=== PATIENT | male | born 1965 | race Caucasian/White ===

== ENCOUNTER 2018-03-21 11:25 | Inpatient (IN) | payer MEDICAID ==
[2018-03-22 19:51] VITALS: BMI 34.8
--- NOTE | 2018-03-22 20:09 | CP.PCM.HP ---
History of Present Illness - History of Present Illness History of Present Illness: 53 yo male with history of HTN and Gout claimed he was talking with his brother on the phone when he suddenly lost balance and was unable to get up. Denied LOC but claimed he hit his head on the wall on the way done. Patient was advised by his brother to get immediate attention but patient refused. He was not seen until 3 days later when his arrived from [place]. He was brought to [facility] on 03/16/2018 and was found to have left facial droop and slurred speech. CT scan showed large focal bleed at the right basal ganglia with sorrounding edema associated with mass effect. When patient became neurologically and hemodynamically stable he was transferred to Acute Rehab for PT/OT. Present on Admission - Present on Admission Any Indicators Present on Admission: No History of DVT/PE: No History of Uncontrolled Diabetes: No Urinary Catheter: No Decubitus Ulcer Present: No Review of Systems - Review of Systems All systems: reviewed and no additional remarkable complaints except (aside from those mentioned above, 12 point system review were negative by me) Past Patient History - Tetanus Immunizations Tetanus Immunization: Unknown - Past Medical History & Family History Past Medical History?: Yes - Past Social History Smoking Status: Never Smoked Alcohol: None Drugs: Denies Home Situation {Lives}: With Family - CARDIAC Hx Hypercholesterolemia: Yes Hx Hypertension: Yes - PULMONARY Hx Respiratory Disorders: No - NEUROLOGICAL Hx Neurological Disorder: No - HEENT Hx HEENT Problems: No - RENAL Hx Chronic Kidney Disease: No - ENDOCRINE/METABOLIC Hx Endocrine Disorders: No - HEMATOLOGICAL/ONCOLOGICAL Hx Blood Disorders: No - INTEGUMENTARY Hx Dermatological Problems: No - MUSCULOSKELETAL/RHEUMATOLOGICAL Hx Gout: Yes - GASTROINTESTINAL Hx Gastrointestinal Disorders: No - GENITOURINARY/GYNECOLOGICAL Hx Genitourinary Disorders: No - PSYCHIATRIC Hx Psychophysiologic Disorder: No Hx Substance Use: No - SURGICAL HISTORY Hx Surgeries: No - ANESTHESIA Hx Anesthesia: No Meds Allergies/Adverse Reactions: Allergies Allergy/AdvReac Type Severity Reaction Status Date / Time No Known Allergies Allergy Verified 03/22/18 19:43 Physical Exam - Constitutional Appears: No Acute Distress - Head Exam Head Exam: ATRAUMATIC - Eye Exam Eye Exam: absent: Scleral icterus - ENT Exam ENT Exam: Mucous Membranes Moist - Neck Exam Neck exam: Negative for: Meningismus - Respiratory Exam Respiratory Exam: absent: Rales, Rhonchi, Wheezes, Respiratory Distress - Cardiovascular Exam Cardiovascular Exam: REGULAR RHYTHM, +S1, +S2 - GI/Abdominal Exam GI & Abdominal Exam: Soft. absent: Tenderness - Rectal Exam Rectal Exam: Deferred - Extremities Exam Extremities exam: Negative for: calf tenderness, pedal edema - Back Exam Back exam: NORMAL INSPECTION - Neurological Exam Neurological exam: Alert, Oriented x3 - Psychiatric Exam Psychiatric exam: Normal Affect - Skin Skin Exam: Dry, Intact Assessment & Plan - Assessment and Plan (Free Text) Assessment: 53 yo male with history of HTN and Gout claimed he was talking with his brother on the phone when he suddenly lost balance and was unable to get up. Denied LOC but claimed he hit his head on the wall on the way done. Patient was advised by his brother to get immediate attention but patient refused. He was not seen until 3 days later when his arrived from [place]. He was brought to [facility] on 03/16/2018 and was found to have left facial droop and slurred speech. CT scan showed large focal bleed at the right basal ganglia with sorrounding edema associated with mass effect. When patient became neurologically and hemodynamically stable he was transferred to Acute Rehab for PT/OT. 1. Acute CVA refer to PT for evaluation and management physiatry consult with Dr Mccray hold anti-platelets because of acute cerebral bleed continue statin and BP management 2. HTN BP stable continue Amlodipine, Hydralazine and Metoprolol 3. Gout serum uric acid 4. DVT prophylaxis venodyne boots while in bed
[2018-03-23 06:33] LABS: BASO % 0.5 % (0.0-2.0); EOS # 0.4 K/uL (0.0-0.7); EOS % 4.2 % (0.0-4.0); HEMOGLOBIN 13.4 g/dL (12.0-18.0); LYMPH # 1.3 K/uL (1.0-4.3); LYMPH % 15.1 % (20.0-40.0); MEAN CELL VOLUME 85.2 fl (80.0-94.0); MEAN CORPUSCULAR HEMOGLOBIN 28.6 pg (27.0-31.0); MEAN CORPUSCULAR HGB CONC 33.6 g/dL (33.0-37.0); MEAN PLATELET VOLUME 7.6 fl (7.2-11.7); MONO # 0.7 K/uL (0.0-0.8); NEUT # 6.2 K/uL (1.8-7.0); NEUT % 72.2 % (50.0-75.0); NRBC % 0.1 % (0.0-0.0); RBC 4.68 Mil/uL (4.40-5.90); RED CELL DISTRIBUTION WIDTH 13.7 % (11.5-14.5); WHITE BLOOD COUNT 8.6 K/uL (4.8-10.8)
[2018-03-23 06:40] LABS: BLOOD UREA NITROGEN 18 mg/dl (9-20); GFR AFRICAN-AMERICAN > 60; GFR NON-AFRICAN AMERICAN > 60
[2018-03-23] MEDS ORDERED: Patient's Own Med (Famotidine [Pepcid] 40 MG) PO SCH (09:00)
[2018-03-23] MEDS: Pantoprazole 40 mg EC Tab PO SCH (09:38)
--- NOTE | 2018-03-23 19:12 | CP.PCM.CON ---
History of Present Illness - History of Present Illness History of Present Illness: Dr Quispe coverage for Dr Mccray on Leon Toussaint, born 1965, who has suffered a left CVA with right HP. Fair neuro functional level at this point and an ideal acute rehab candidate. Previously very independent. Right hand dominant Review of Systems - Constitutional Constitutional: absent: Anorexia, Chills - EENT Eyes: absent: Blind Spots, Blurred Vision Ears: absent: Decreased Hearing, Ear Discharge Nose/Mouth/Throat: absent: Nasal Congestion - Cardiovascular Cardiovascular: absent: Chest Pain - Respiratory Respiratory: absent: Dyspnea, Hemoptysis - Gastrointestinal Gastrointestinal: absent: Belching, Constipation - Musculoskeletal Musculoskeletal: Arthralgias (left knee from gout) - Integumentary Integumentary: absent: Alopecia, Bleeding Lesions - Neurological Neurological: Weakness (left HP). absent: Abnormal Movements, Radicular Pain Past Patient History - Tetanus Immunizations Tetanus Immunization: Unknown - Past Medical History & Family History Past Medical History?: Yes - Past Social History Smoking Status: Never Smoked Alcohol: None Drugs: Denies Home Situation {Lives}: With Family (+ stairs-10) - CARDIAC Hx Hypercholesterolemia: Yes Hx Hypertension: Yes - PULMONARY Hx Respiratory Disorders: No - NEUROLOGICAL Hx Neurological Disorder: No - HEENT Hx HEENT Problems: No - RENAL Hx Chronic Kidney Disease: No - ENDOCRINE/METABOLIC Hx Endocrine Disorders: No - HEMATOLOGICAL/ONCOLOGICAL Hx Blood Disorders: No - INTEGUMENTARY Hx Dermatological Problems: No - MUSCULOSKELETAL/RHEUMATOLOGICAL Hx Gout: Yes - GASTROINTESTINAL Hx Gastrointestinal Disorders: No - GENITOURINARY/GYNECOLOGICAL Hx Genitourinary Disorders: No - PSYCHIATRIC Hx Psychophysiologic Disorder: No Hx Substance Use: No - SURGICAL HISTORY Hx Surgeries: No - ANESTHESIA Hx Anesthesia: No Meds Allergies/Adverse Reactions: Allergies Allergy/AdvReac Type Severity Reaction Status Date / Time No Known Allergies Allergy Verified 03/22/18 19:43 - Medications Medications: Current Medications Acetaminophen (Tylenol 325mg Tab) 650 mg PO TID PRN PRN Reason: Pain, moderate (4-7) Last Admin: 03/23/18 18:49 Dose: 650 mg Amlodipine Besylate (Norvasc) 5 mg PO DAILY [facility] Last Admin: 03/23/18 09:37 Dose: 5 mg Atorvastatin Calcium (Lipitor) 40 mg PO HS [facility] Last Admin: 03/22/18 22:26 Dose: 40 mg Docusate Sodium (Colace) 100 mg PO BID [facility] Last Admin: 03/23/18 17:19 Dose: 100 mg Hydralazine HCl (Apresoline) 10 mg PO Q8@0600,1400,2200 [facility] Last Admin: 03/23/18 14:29 Dose: 10 mg Metoprolol Tartrate (Lopressor) 50 mg PO BID [facility] Last Admin: 03/23/18 17:21 Dose: 50 mg Pantoprazole Sodium (Protonix Ec Tab) 40 mg PO DAILY [facility] Last Admin: 03/23/18 09:38 Dose: 40 mg Physical Exam - Constitutional Appears: Well, Non-toxic, No Acute Distress - Head Exam Head Exam: ATRAUMATIC, NORMAL INSPECTION, NORMOCEPHALIC - Eye Exam Eye Exam: EOMI - ENT Exam ENT Exam: Mucous Membranes Moist - Respiratory Exam Respiratory Exam: NORMAL BREATHING PATTERN - Cardiovascular Exam Cardiovascular Exam: REGULAR RHYTHM - GI/Abdominal Exam GI & Abdominal Exam: Distended, Normal Bowel Sounds. absent: Firm - Extremities Exam Extremities exam: Negative for: calf tenderness - Neurological Exam Neurological exam: Alert, CN II-XII Intact, Oriented x3 - Psychiatric Exam Psychiatric exam: Normal Affect, Normal Mood - Skin Skin Exam: Warm Results - Vital Signs Recent Vital Signs: Last Vital Signs Temp 97.8 F 03/23/18 08:24 Pulse 86 03/23/18 17:21 Resp 20 03/23/18 08:24 BP 140/80 03/23/18 17:21 Pulse Ox 98 03/23/18 08:12 - Labs Result Diagrams: 03/23/18 06:00 03/23/18 06:00 Labs: Laboratory Results - last 24 hr 03/23/18 03/23/18 06:00 06:00 WBC 8.6 RBC 4.68 Hgb 13.4 Hct 39.9 MCV 85.2 MCH 28.6 MCHC 33.6 RDW 13.7 Plt Count 428 H MPV 7.6 Neut % (Auto) 72.2 Lymph % (Auto) 15.1 L Hardeman % (Auto) 8.0 Eos % (Auto) 4.2 H Baso % (Auto) 0.5 Neut # (Auto) 6.2 Lymph # (Auto) 1.3 Hardeman # (Auto) 0.7 Eos # (Auto) 0.4 Baso # (Auto) 0.0 Sodium 136 Potassium 4.1 Chloride 98 Carbon Dioxide 26 Anion Gap 16 BUN 18 Creatinine 1.1 Est GFR ( Amer) > 60 Est GFR (Non-Af Amer) > 60 Random Glucose 119 H Calcium 9.0 Assessment & Plan - Assessment and Plan (Free Text) Assessment: left UE with FAROM at shoulder. 2+/5 hand 3-/5 lower extremity right UE/LE wnl PT/OT to continue to help increase functional independence Team conference for d/c planning Pain: controlled Vascular: no evidence of DVT GI: No evidence of constipation or diarrhea Patient is an excellent acute rehabilitation candidate and will have focused PT, OT and recreational therapy to help facilitate a safe and appropriate d/c plan impairment code: 01.1
--- NOTE | 2018-03-23 19:38 | PCM.OPOC ---
Physiatry Overall Plan of Care - Overall Plan of Care Estimated Length of Stay in Weeks: 3 Rehab Impairment: Mobility, Gait, Balance, Coordination Etiologic Diagnosis: Cerebrovascular Accident Rehab/Medical Prognosis: Good - Anticipated Interventions Physical Therapy:: Yes Occupational Therapy:: Yes Speech Therapy:: No Recreational Therapy:: Yes - Therapy Goals Bed Mobility: Supervision Ambulation: Supervision Functional Positional Changes:: Supervision - Discharge Plan Discharge Destination: Home
--- NOTE | 2018-03-24 07:21 | CP.PCM.CON ---
History of Present Illness - History of Present Illness History of Present Illness: Mr. Toussaint is a 53 yo male with history of HTN and Gout claimed he was talking with his brother on the phone when he suddenly lost balance and was unable to get up. He denied LOC but claimed he hit his head on the wall on the way done. Patient was advised by his brother to get immediate attention but patient refused. He was not seen until 3 days later when his arrived from [place]. He was brought to [facility] on 03/16/2018 and was found to have left facial droop and slurred speech. CT scan showed large focal bleed at the right basal ganglia with surrounding edema associated with mass effect. When patient became neurologically and hemodynamically stable he was transferred to Acute Rehab for PT/OT. At present, he is alert, oriented x3. He denies any headache, dizziness, nausea, lightheadedness. His left side weakness is improving since admission. Review of Systems - Review of Systems All systems: reviewed and no additional remarkable complaints except Past Patient History - Tetanus Immunizations Tetanus Immunization: Unknown - Past Medical History & Family History Past Medical History?: Yes - Past Social History Smoking Status: Never Smoked Alcohol: None Drugs: Denies Home Situation {Lives}: With Family (+ stairs-10) - CARDIAC Hx Hypercholesterolemia: Yes Hx Hypertension: Yes - PULMONARY Hx Respiratory Disorders: No - NEUROLOGICAL Hx Neurological Disorder: No - HEENT Hx HEENT Problems: No - RENAL Hx Chronic Kidney Disease: No - ENDOCRINE/METABOLIC Hx Endocrine Disorders: No - HEMATOLOGICAL/ONCOLOGICAL Hx Blood Disorders: No - INTEGUMENTARY Hx Dermatological Problems: No - MUSCULOSKELETAL/RHEUMATOLOGICAL Hx Gout: Yes - GASTROINTESTINAL Hx Gastrointestinal Disorders: No - GENITOURINARY/GYNECOLOGICAL Hx Genitourinary Disorders: No - PSYCHIATRIC Hx Psychophysiologic Disorder: No Hx Substance Use: No - SURGICAL HISTORY Hx Surgeries: No - ANESTHESIA Hx Anesthesia: No Meds Allergies/Adverse Reactions: Allergies Allergy/AdvReac Type Severity Reaction Status Date / Time No Known Allergies Allergy Verified 03/22/18 19:43 - Medications Medications: Current Medications Acetaminophen (Tylenol 325mg Tab) 650 mg PO TID PRN PRN Reason: Pain, moderate (4-7) Last Admin: 03/23/18 22:30 Dose: 650 mg Amlodipine Besylate (Norvasc) 5 mg PO DAILY [facility] Last Admin: 03/23/18 09:37 Dose: 5 mg Atorvastatin Calcium (Lipitor) 40 mg PO HS [facility] Last Admin: 03/23/18 21:12 Dose: 40 mg Docusate Sodium (Colace) 100 mg PO BID [facility] Last Admin: 03/23/18 17:19 Dose: 100 mg Hydralazine HCl (Apresoline) 10 mg PO Q8@0600,1400,2200 [facility] Last Admin: 03/24/18 07:05 Dose: 10 mg Metoprolol Tartrate (Lopressor) 50 mg PO BID [facility] Last Admin: 03/23/18 17:21 Dose: 50 mg Pantoprazole Sodium (Protonix Ec Tab) 40 mg PO DAILY [facility] Last Admin: 03/23/18 09:38 Dose: 40 mg Physical Exam - Constitutional Appears: No Acute Distress - Head Exam Head Exam: NORMAL INSPECTION - Eye Exam Eye Exam: Conjunctival injection Pupil Exam: Miosis, PERRL - ENT Exam ENT Exam: Mucous Membranes Moist, Normal Exam - Neck Exam Neck exam: Positive for: Normal Inspection - Respiratory Exam Respiratory Exam: Clear to Auscultation Bilateral, NORMAL BREATHING PATTERN - Cardiovascular Exam Cardiovascular Exam: +S1, +S2 - GI/Abdominal Exam GI & Abdominal Exam: Normal Bowel Sounds, Soft. absent: Tenderness - Extremities Exam Extremities exam: Positive for: normal inspection - Back Exam Back exam: NORMAL INSPECTION - Neurological Exam Neurological exam: Alert, CN II-XII Intact, Oriented x3, Reflexes Normal - Expanded Neurological Exam Expanded Patient oriented to: person, place, time Cranial nerves: EOM's Intact: Normal, Facial Palsey w/Forehead Movement: Normal , Facial Palsey w/o Forehead Movement: Normal, Facial Sensation: Normal, Gag Reflex: Normal, Nystagmus: Normal, Tongue Deviation: Normal Cerebellar Function: Finger to Nose: Normal, Heel to [place]: Abnormal Left Upper motor neuron: Babinski Sign: Normal, Faisal Neglect: Normal, Pronator Drift : Abnormal Left, Sensory Extinction: Normal Sensory exam: Lower Extremity 2 Point Discrimination: Normal, Lower Extremity Light Touch: Normal, Lower Extremity Pin Prick: Normal, Lower Extremity Temperature: Normal, Upper Extremity 2 Point Discrimination: Normal, Upper Extremity Light Touch: Normal, Upper Extremity Pin Prick: Normal, Upper Extremity Temperature: Normal Neuro motor strength exam: Left Upper Extremity: 3, Right Upper Extremity: 5, Left Lower Extremity: 3, Right Lower Extremity: 5 Results - Vital Signs Recent Vital Signs: Last Vital Signs Temp 98.2 F 03/23/18 20:16 Pulse 83 03/24/18 07:05 Resp 20 03/23/18 20:16 BP 137/76 03/24/18 07:05 Pulse Ox 96 03/23/18 20:16 - Labs Result Diagrams: 03/23/18 06:00 03/23/18 06:00 Assessment & Plan (1) Basal ganglia hemorrhage Assessment and Plan: 53 yo male with history of HTN and Gout claimed he was talking with his brother on the phone when he suddenly lost balance and was unable to get up. Denied LOC but claimed he hit his head on the wall on the way done. Patient was advised by his brother to get immediate attention but patient refused. He was not seen until 3 days later when his arrived from [place]. He was brought to [facility] on 03/16/2018 and was found to have left facial droop and slurred speech. CT scan showed large focal bleed at the right basal ganglia with sorrounding edema associated with mass effect. Case discussed with Dr. Nascimento, recommend the following 1. PT,OT,ST eval and treat 2. keep LDL < 70, continue lipitor 40 mg PO HS 3. DVT prophylaxis- SCD and matt hose 4. dietary consult (food choices) 5. Recommend blood pressure control, keep head of bed at least 30 degrees. Thank you. Status: Acute
[2018-03-24] MEDS: Pantoprazole 40 mg EC Tab PO SCH (09:07)
[2018-03-25] MEDS: Pantoprazole 40 mg EC Tab PO SCH (08:47)
--- NOTE | 2018-03-25 11:47 | CP.PCM.PN ---
Subjective - Date & Time of Evaluation Date of Evaluation: 03/25/18 Time of Evaluation: 10:00 - Subjective Subjective: Patient seen and examined during physical therapy. States that he has an itchy rash on his left arm and left back. Notes he has not been sleeping well lately. His therapy has been going well so far. No other new complaints. Objective - Vital Signs/Intake and Output Vital Signs (last 24 hours): Temp Pulse Resp BP Pulse Ox 97.2 F L 88 18 124/60 98 03/25/18 08:00 03/25/18 08:53 03/25/18 08:00 03/25/18 08:46 03/25/18 08:53 - Medications Medications: Current Medications Acetaminophen (Tylenol 325mg Tab) 650 mg PO TID PRN PRN Reason: Pain scale (4-10) Allopurinol (Zyloprim) 100 mg PO BID [facility] Amlodipine Besylate (Norvasc) 5 mg PO DAILY [facility] Atorvastatin Calcium (Lipitor) 40 mg PO HS [facility] Last Admin: 03/24/18 22:18 Dose: 40 mg Diphenhydramine HCl (Benadryl) 25 mg PO Q6 PRN PRN Reason: Itching / Pruritus Docusate Sodium (Colace) 100 mg PO BID [facility] Last Admin: 03/25/18 08:46 Dose: 100 mg Hydralazine HCl (Apresoline) 10 mg PO Q8@0600,1400,2200 [facility] Last Admin: 03/25/18 06:23 Dose: 10 mg Lactic Acid (Lac-Hydrin 12% Lotion (225 G)) 1 applic TOP 0600,1800 [facility] Metoprolol Tartrate (Lopressor) 50 mg PO Q12 [facility] Pantoprazole Sodium (Protonix Ec Tab) 40 mg PO DAILY [facility] Last Admin: 03/25/18 08:47 Dose: 40 mg Temazepam (Restoril) 15 mg PO HS PRN PRN Reason: Insomnia - Labs Labs: 03/23/18 06:00 03/23/18 06:00 - Additional Findings Additional findings: Physical exam: Constitutional- cooperative, awake, alert Head- NCAT, PERRL Eye- PERRL, EOMI ENT- normal exam, MMM. Neck- normal inspection, supple, no JVD Respiratory- CTAB, no wheezes rales rhonchi Cardiovascular- RRR, +S1, +S2 no MRG GI/Abdominal- normal bowel sounds, soft, no mass, no hsm Skin- warm, dry Extremities Exam- normal capillary refill, normal inspection Neurological Exam- alert, awake, oriented Psych- normal mood, normal affect Assessment and Plan - Assessment and Plan (Free Text) Plan: 53 yo male with history of HTN and Gout claimed he was talking with his brother on the phone when he suddenly lost balance and was unable to get up. Denied LOC but claimed he hit his head on the wall on the way done. Patient was advised by his brother to get immediate attention but patient refused. He was not seen until 3 days later when his arrived from [place]. He was brought to [facility] on 03/16/2018 and was found to have left facial droop and slurred speech. CT scan showed large focal bleed at the right basal ganglia with sorrounding edema associated with mass effect. When patient became neurologically and hemodynamically stable he was transferred to Acute Rehab for PT/OT. 1. Acute CVA refer to PT/OT/ST for evaluation and management physiatry consult with Dr Mccray hold anti-platelets because of acute cerebral bleed continue statin and BP management Lipitor 40 mg po HS, keep LDL < 70 Dietary consult HOB at least 30 degress 2. HTN BP stable continue Amlodipine, Hydralazine and Metoprolol 3. Gout serum uric acid 4. DVT prophylaxis venodyne boots while in bed
[2018-03-26] MEDS: Pantoprazole 40 mg EC Tab PO SCH (09:12)
[2018-03-27 07:16] LABS: ALB/GLOB RATIO 0.9 (1.0-2.1); ALBUMIN 3.4 g/dL (3.5-5.0); BILIRUBIN,DIRECT 0.3 mg/ml (0.0-0.4)
[2018-03-27] MEDS: Pantoprazole 40 mg EC Tab PO SCH (09:02)
--- NOTE | 2018-03-27 09:55 | CP.PCM.PN ---
Subjective - Date & Time of Evaluation Date of Evaluation: 03/27/18 Time of Evaluation: 12:00 - Subjective Subjective: Patient seen and examined bedside. Feeling better. Improving and participating with PT. Hemodynamically stable, afebrile. No acute issues overnight. Objective - Vital Signs/Intake and Output Vital Signs (last 24 hours): Temp Pulse Resp BP Pulse Ox 97.5 F L 85 18 131/72 97 03/27/18 07:35 03/27/18 09:02 03/27/18 07:35 03/27/18 09:02 03/27/18 07:35 - Medications Medications: Current Medications Acetaminophen (Tylenol 325mg Tab) 650 mg PO TID PRN PRN Reason: Pain, Mild (1-3) Amlodipine Besylate (Norvasc) 5 mg PO DAILY [facility] Last Admin: 03/27/18 09:02 Dose: 5 mg Atorvastatin Calcium (Lipitor) 40 mg PO HS [facility] Last Admin: 03/26/18 21:25 Dose: 40 mg Diphenhydramine HCl (Benadryl) 25 mg PO Q6 PRN PRN Reason: Itching / Pruritus Hydralazine HCl (Apresoline) 10 mg PO Q8@0600,1400,2200 [facility] Last Admin: 03/27/18 06:35 Dose: 10 mg Lactic Acid (Lac-Hydrin 12% Lotion (225 G)) 1 applic TOP 0600,1800 [facility] Last Admin: 03/27/18 06:36 Dose: 1 applic Metoprolol Tartrate (Lopressor) 50 mg PO Q12 [facility] Last Admin: 03/27/18 09:01 Dose: 50 mg Pantoprazole Sodium (Protonix Ec Tab) 40 mg PO DAILY [facility] Last Admin: 03/27/18 09:02 Dose: 40 mg Temazepam (Restoril) 15 mg PO HS PRN PRN Reason: Insomnia Last Admin: 03/26/18 21:25 Dose: 15 mg Tramadol HCl (Ultram) 50 mg PO Q6 PRN PRN Reason: Pain, moderate (4-7) Last Admin: 03/27/18 09:01 Dose: 50 mg - Labs Labs: 03/23/18 06:00 03/23/18 06:00 - Constitutional Appears: Non-toxic, No Acute Distress - Head Exam Head Exam: ATRAUMATIC, NORMAL INSPECTION, NORMOCEPHALIC - Eye Exam Eye Exam: EOMI, Normal appearance, PERRL Pupil Exam: NORMAL ACCOMODATION - ENT Exam ENT Exam: Mucous Membranes Moist, Normal Exam - Neck Exam Neck Exam: Full ROM, Normal Inspection - Respiratory Exam Respiratory Exam: Clear to Ausculation Bilateral, NORMAL BREATHING PATTERN. absent: Rales, Rhonchi, Wheezes - Cardiovascular Exam Cardiovascular Exam: REGULAR RHYTHM, RRR, +S1, +S2. absent: JVD - GI/Abdominal Exam GI & Abdominal Exam: Soft, Normal Bowel Sounds. absent: Distended, Guarding, Tenderness, Rebound - Rectal Exam Rectal Exam: Deferred - Extremities Exam Extremities Exam: Full ROM, Normal Capillary Refill, Normal Inspection. absent : Calf Tenderness, Pedal Edema - Back Exam Back Exam: NORMAL INSPECTION - Neurological Exam Neurological Exam: Alert, Awake, CN II-XII Intact, Oriented x3 Additional comments: left side weakness 4/5 - Psychiatric Exam Psychiatric exam: Normal Affect - Skin Skin Exam: Dry, Intact, Normal Color, Warm Assessment and Plan - Assessment and Plan (Free Text) Assessment: 53 yo male with history of HTN and Gout claimed he was talking with his brother on the phone when he suddenly lost balance and was unable to get up. Denied LOC but claimed he hit his head on the wall on the way down. Patient was advised by his brother to get immediate attention but patient refused. He was not seen until 3 days later when his arrived from [place]. He was brought to [facility] on 03/16/2018 and was found to have left facial droop and slurred speech. CT scan showed large focal bleed at the right basal ganglia with sorrounding edema associated with mass effect. When patient became neurologically and hemodynamically stable he was transferred to Acute Rehab for PT/OT. At present in acute rehab, participating with PT and improving. 1. 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 HTN BP stable continue Amlodipine, Hydralazine and Metoprolol 3. Gout stable 4. Obesity BMI 34 5. Transaminitis probably statin induced continue monitoring 6. DVT prophylaxis venodyne boots while in bed
--- NOTE | 2018-03-27 12:32 | CP.PCM.PN ---
Subjective - Date & Time of Evaluation Date of Evaluation: 03/27/18 Time of Evaluation: 12:25 - Subjective Subjective: Mr. Toussaint was seen and examined at the recreational therapy room. He is alert, oriented x3. He denies any headache, dizziness, lightheadedness, nausea, or vomiting. He is able to participate during recreational activities. He is able to follow simple commands with movement in his left side improving. He further states of improving transfer. There was no untoward events overnight. Objective - Vital Signs/Intake and Output Vital Signs (last 24 hours): Temp Pulse Resp BP Pulse Ox 97.5 F L 85 18 131/72 97 03/27/18 09:00 03/27/18 09:02 03/27/18 09:00 03/27/18 09:02 03/27/18 07:35 - Medications Medications: Current Medications Acetaminophen (Tylenol 325mg Tab) 650 mg PO TID PRN PRN Reason: Pain, Mild (1-3) Amlodipine Besylate (Norvasc) 5 mg PO DAILY [facility] Last Admin: 03/27/18 09:02 Dose: 5 mg Atorvastatin Calcium (Lipitor) 40 mg PO HS [facility] Last Admin: 03/26/18 21:25 Dose: 40 mg Diphenhydramine HCl (Benadryl) 25 mg PO Q6 PRN PRN Reason: Itching / Pruritus Hydralazine HCl (Apresoline) 10 mg PO Q8@0600,1400,2200 [facility] Last Admin: 03/27/18 06:35 Dose: 10 mg Lactic Acid (Lac-Hydrin 12% Lotion (225 G)) 1 applic TOP 0600,1800 [facility] Last Admin: 03/27/18 06:36 Dose: 1 applic Metoprolol Tartrate (Lopressor) 50 mg PO Q12 [facility] Last Admin: 03/27/18 09:01 Dose: 50 mg Pantoprazole Sodium (Protonix Ec Tab) 40 mg PO DAILY [facility] Last Admin: 03/27/18 09:02 Dose: 40 mg Temazepam (Restoril) 15 mg PO HS PRN PRN Reason: Insomnia Last Admin: 03/26/18 21:25 Dose: 15 mg Tramadol HCl (Ultram) 50 mg PO Q6 PRN PRN Reason: Pain, moderate (4-7) Last Admin: 03/27/18 09:01 Dose: 50 mg - Labs Labs: 03/23/18 06:00 03/23/18 06:00 - Constitutional Appears: No Acute Distress - Head Exam Head Exam: NORMAL INSPECTION - Eye Exam Pupil Exam: PERRL - Neurological Exam Neurological Exam: Alert, Awake, Oriented x3 Neuro motor strength exam: Left Upper Extremity: 3, Right Upper Extremity: 5, Left Lower Extremity: 3, Right Lower Extremity: 5 Additional comments: neurological improved from previous examination. Assessment and Plan (1) Basal ganglia hemorrhage Assessment & Plan: Case discussed with Dr. Burleson, continue all current medical, physical, occupational, and speech therapies. Recommend to repeat CT of the head without contrast to evaluate the evolution of hemorrhage in the basal ganglia and if it is safe for the patient to start on antiplatelet ( aspirin) therapy. Status: Acute
--- NOTE | 2018-03-27 12:33 | PSY.TMCNF ---
Nursing - Vital Signs Vital Signs (Last 8 hours): Vital Signs 03/27/18 03/27/18 03/27/18 06:35 07:35 09:00 Temperature 97.5 F L 97.5 F L Pulse Rate 65 85 85 Respiratory 18 18 Rate Blood Pressure 115/66 131/72 131/72 O2 Sat by Pulse 97 Oximetry 03/27/18 03/27/18 09:01 09:02 Temperature Pulse Rate 85 85 Respiratory Rate Blood Pressure 131/72 131/72 O2 Sat by Pulse Oximetry Pain: 0 - Precautions: Precautions: Fall Prevention - Medications/Other Issues Comment: Pt is at low nutritional risk. No nutrition-related goals at this time. Follow-up due by 04/01/2018. - Consults Comment: Dr. Mccray, Dr. Oconnor - Toileting Toileting: Moderate Assistance - Bladder Management Bladder Pattern: Normal Voiding Method: Toilet, Urinal Bladder Management: Moderate Assistance - Bowel Management Bowel Pattern: Normal Bowel Management: Moderate Assistance - Transfers Transfers: Moderate Assistance - ADL's ADL's: Moderate Assistance - Pain Management Comments: Tramadol for pain - Patient/Family Teaching Comments: N/A - Goals/Time Frame Comments: Per multidiscplinary team. Physical Therapy - Bed Mobility Bed Mobility: Moderate Assistance - Transfers Wheelchair to Mat: Moderate Assistance Sit to Stand: Minimal Assistance - Ambulation Level of Assistance: Minimal Assistance Distance (ft.): 50 Assistive Devices: Rolling Walker - Stair Negotiation Stairs: Level of Assistance: Not Tested - Standing Balance Static Stand: Minimal Assistance Dynamic Stand: Unable to assess/perform - Pain Management Techniques: Medication - Insight/Carryover Insight/Carryover: Fair - Patient/Family Education Comment: Pt/family ed for safety, recovery from head injury, proper techniques during functional mobility training. - Assessment/Plan Assessment: Pt is agreeable to participate in recreation therapy sessions. Pt has participated in connect four task and group task of mary following orientation. Pt carried over task rules of dominoes although requires more verbal cues for problem solving strategies. Pt will benefit from participating in recreation therapy sessions throughout stay on unit. - Goals Timeframe: 3 weeks Goals: Sit < > supine mod I. Sit < > stand mod I. Pt will ambulate 150 ft mod I with AD. Pt will ascend/descend flight of stairs mod I with handrail - Provider Therapist: c License Number: [id number] Occupational Therapy - Arousal/Attention/Orientation Patient Orientation: Person, Place, Time, Appropriate to Age, Appropriate to Situation - ADL/IADL Self Feeding: Set-up Help Grooming: Set-up Help Bathing-Upper Extremity: Supervision, Verbal Cues, Minimal Assistance Bathing-Lower Extremity: Supervision, Verbal Cues, Moderate Assistance Dressing-Upper Extremity: Supervision, Verbal Cues, Minimal Assistance Dressing-Lower Extremity: Supervision, Verbal Cues, Maximum Assistance - Sitting Balance Static Sitting: Supervision Dynamic Sitting: Reaches across midline, Reaches out of base of support, Requires supervision - Transfers Wheelchair to Bed Transfers: Supervision, Verbal Cues, Moderate Assistance Toilet Transfers: Supervision, Verbal Cues, Moderate Assistance Tub Transfers: Supervision, Verbal Cues, Moderate Assistance - Wheelchair Management Level of Assistance: Minimal Assistance Distance (ft.): 50 - Upper Extremity Status Right Upper Extremity Comment: R UE AROM: WNL. Strength: 5/5 Left Upper Extremity Comment: L UE AROM: WFL in all planes. 3+/5 strength throughout. Decreased gross/fine motor coordination L UE. Sensation: WNL for light touch and proprioception - Pain Alleviating Techniques: Medication - Insight/Carryover Insight/Carryover: Fair - Patient/Family Education Comment: Pt/family ed for safety, recovery from head injury, proper techniques during functional mobility training. - Assessment/Plan Assessment: Pt is agreeable to participate in recreation therapy sessions. Pt has participated in connect four task and group task of dominoes following orientation. Pt carried over task rules of dominoes although requires more verbal cues for problem solving strategies. Pt will benefit from participating in recreation therapy sessions throughout stay on unit. - Goals Timeframe: 3 weeks Goals: Sit < > supine mod I. Sit < > stand mod I. Pt will ambulate 150 ft mod I with AD. Pt will ascend/descend flight of stairs mod I with handrail - Provider Therapist: MAVIS Mckeon License Number: [id number] Speech Therapy - Plan Assessment: Pt is agreeable to participate in recreation therapy sessions. Pt has participated in connect four task and group task of dominoes following orientation. Pt carried over task rules of dominoes although requires more verbal cues for problem solving strategies. Pt will benefit from participating in recreation therapy sessions throughout stay on unit. Recreational Therapy - Participation Participation: Participates in Individual and/or Group Sessions - Attendance Attendance: 3-5 times per week - Activities Leisure Activities: Cards and Games - Socialization Level of Socialization: Initiates/interacts freely with care givers and peer - Assessment Assessment/Plan: Pt is agreeable to participate in recreation therapy sessions. Pt has participated in connect four task and group task of dominoes following orientation. Pt carried over task rules of dominoes although requires more verbal cues for problem solving strategies. Pt will benefit from participating in recreation therapy sessions throughout stay on unit. Problems Currently Limiting Participation: L side weakness, decrease leisure awareness level, decrease endurance level Goals and Time Frame: Pt will be encouraged to participate in 1:1 and group recreation therapy sessions 3-5x week to improve leisure awareness level, direction following, problem solving, L side weakness, and activity tolerance level. - Provider Therapist: Arianna Ozuna, INFORMATION SCIENTIST #[id number] Nutrition - Current Diet Current Diet/ Supplement/ Feedings: Heart healthy, 2 gm Na diet - Appetite Percent Meal Consumed: 75-100% - Comments Comments: N/A - Assessment/Goals/Time Frame Assessment/Goals/Time Frame: Pt is at low nutritional risk. No nutrition- related goals at this time. Follow-up due by 04/01/2018. - Provider Provider: Eugenie Ledezma MS, RD Case Management - Discharge Plan Discharge Plan: Home with significant other/family Rehabilitation Plan - Treatment Plan Treatment Plan: Physical Therapy, Occupational Therapy, Dietary, Patient/Family Education - Recommendation Recommendation: Physical Therapy, Occupational Therapy, Dietary, Patient/Family Education - Discharge Plan Discharge to: Home (april 10)
--- NOTE | 2018-03-27 15:08 | CP.PCM.PN ---
Subjective - Date & Time of Evaluation Date of Evaluation: 03/24/18 Time of Evaluation: 14:00 - Subjective Subjective: no acute complaints at present Objective - Vital Signs/Intake and Output Vital Signs (last 24 hours): Temp Pulse Resp BP Pulse Ox 97.5 F L 76 18 124/67 98 03/27/18 09:00 03/27/18 13:23 03/27/18 09:00 03/27/18 13:23 03/27/18 09:00 - Medications Medications: Current Medications Acetaminophen (Tylenol 325mg Tab) 650 mg PO TID PRN PRN Reason: Pain, Mild (1-3) Amlodipine Besylate (Norvasc) 5 mg PO DAILY [facility] Last Admin: 03/27/18 09:02 Dose: 5 mg Atorvastatin Calcium (Lipitor) 40 mg PO HS [facility] Last Admin: 03/26/18 21:25 Dose: 40 mg Diphenhydramine HCl (Benadryl) 25 mg PO Q6 PRN PRN Reason: Itching / Pruritus Hydralazine HCl (Apresoline) 10 mg PO Q8@0600,1400,2200 [facility] Last Admin: 03/27/18 13:23 Dose: 10 mg Lactic Acid (Lac-Hydrin 12% Lotion (225 G)) 1 applic TOP 0600,1800 [facility] Last Admin: 03/27/18 06:36 Dose: 1 applic Metoprolol Tartrate (Lopressor) 50 mg PO Q12 [facility] Last Admin: 03/27/18 09:01 Dose: 50 mg Pantoprazole Sodium (Protonix Ec Tab) 40 mg PO DAILY [facility] Last Admin: 03/27/18 09:02 Dose: 40 mg Temazepam (Restoril) 15 mg PO HS PRN PRN Reason: Insomnia Last Admin: 03/26/18 21:25 Dose: 15 mg Tramadol HCl (Ultram) 50 mg PO Q6 PRN PRN Reason: Pain scale 4-10 - Labs Labs: 03/23/18 06:00 03/23/18 06:00 - Head Exam Head Exam: ATRAUMATIC, NORMAL INSPECTION, NORMOCEPHALIC - Eye Exam Eye Exam: EOMI, Normal appearance, PERRL Pupil Exam: NORMAL ACCOMODATION - ENT Exam ENT Exam: Mucous Membranes Moist, Normal Exam - Neck Exam Neck Exam: Full ROM, Normal Inspection - Respiratory Exam Respiratory Exam: Clear to Ausculation Bilateral, NORMAL BREATHING PATTERN - Cardiovascular Exam Cardiovascular Exam: REGULAR RHYTHM - GI/Abdominal Exam GI & Abdominal Exam: Soft, Normal Bowel Sounds - Rectal Exam Rectal Exam: NORMAL INSPECTION - Exam External exam: NORMAL EXTERNAL EXAM - Extremities Exam Extremities Exam: Full ROM, Normal Capillary Refill, Normal Inspection - Back Exam Back Exam: NORMAL INSPECTION - Neurological Exam Neurological Exam: Alert, Awake Neuro motor strength exam: Left Upper Extremity: 3, Left Lower Extremity: 3 - Psychiatric Exam Psychiatric exam: Normal Affect, Normal Mood - Skin Skin Exam: Dry, Intact Assessment and Plan (1) Basal ganglia hemorrhage Assessment & Plan: plan for physical, occupational rec speech therapy Status: Acute
--- NOTE | 2018-03-27 15:10 | CP.PCM.PN ---
Subjective - Date & Time of Evaluation Date of Evaluation: 03/26/18 Time of Evaluation: 20:00 - Subjective Subjective: no acute complaints at present Objective - Vital Signs/Intake and Output Vital Signs (last 24 hours): Temp Pulse Resp BP Pulse Ox 97.5 F L 76 18 124/67 98 03/27/18 09:00 03/27/18 13:23 03/27/18 09:00 03/27/18 13:23 03/27/18 09:00 - Medications Medications: Current Medications Acetaminophen (Tylenol 325mg Tab) 650 mg PO TID PRN PRN Reason: Pain, Mild (1-3) Amlodipine Besylate (Norvasc) 5 mg PO DAILY [facility] Last Admin: 03/27/18 09:02 Dose: 5 mg Atorvastatin Calcium (Lipitor) 40 mg PO HS [facility] Last Admin: 03/26/18 21:25 Dose: 40 mg Diphenhydramine HCl (Benadryl) 25 mg PO Q6 PRN PRN Reason: Itching / Pruritus Hydralazine HCl (Apresoline) 10 mg PO Q8@0600,1400,2200 [facility] Last Admin: 03/27/18 13:23 Dose: 10 mg Lactic Acid (Lac-Hydrin 12% Lotion (225 G)) 1 applic TOP 0600,1800 [facility] Last Admin: 03/27/18 06:36 Dose: 1 applic Metoprolol Tartrate (Lopressor) 50 mg PO Q12 [facility] Last Admin: 03/27/18 09:01 Dose: 50 mg Pantoprazole Sodium (Protonix Ec Tab) 40 mg PO DAILY [facility] Last Admin: 03/27/18 09:02 Dose: 40 mg Temazepam (Restoril) 15 mg PO HS PRN PRN Reason: Insomnia Last Admin: 03/26/18 21:25 Dose: 15 mg Tramadol HCl (Ultram) 50 mg PO Q6 PRN PRN Reason: Pain scale 4-10 - Labs Labs: 03/23/18 06:00 03/23/18 06:00 - Head Exam Head Exam: ATRAUMATIC, NORMAL INSPECTION, NORMOCEPHALIC - Eye Exam Eye Exam: EOMI, Normal appearance, PERRL Pupil Exam: NORMAL ACCOMODATION - ENT Exam ENT Exam: Mucous Membranes Moist, Normal Exam - Neck Exam Neck Exam: Full ROM, Normal Inspection - Respiratory Exam Respiratory Exam: Clear to Ausculation Bilateral, NORMAL BREATHING PATTERN - Cardiovascular Exam Cardiovascular Exam: REGULAR RHYTHM - GI/Abdominal Exam GI & Abdominal Exam: Soft, Normal Bowel Sounds - Rectal Exam Rectal Exam: NORMAL INSPECTION - Exam External exam: NORMAL EXTERNAL EXAM - Extremities Exam Extremities Exam: Full ROM, Normal Capillary Refill - Back Exam Back Exam: NORMAL INSPECTION - Neurological Exam Neurological Exam: Alert, Awake Neuro motor strength exam: Left Upper Extremity: 3, Right Upper Extremity: 4, Left Lower Extremity: 3, Right Lower Extremity: 4 - Psychiatric Exam Psychiatric exam: Normal Affect, Normal Mood - Skin Skin Exam: Dry, Intact Assessment and Plan (1) Basal ganglia hemorrhage Assessment & Plan: plan for speech therapy rec therapy physical, occupational therapy Status: Acute
--- NOTE | 2018-03-27 17:25 | CT ---
PROCEDURE: CT HEAD WITHOUT CONTRAST. HISTORY: follow up hemorrhagic stroke COMPARISON: None available. TECHNIQUE: Axial computed tomography images were obtained through the head/brain without intravenous contrast. Radiation dose: Total exam DLP = 1135.51 mGy-cm. This CT exam was performed using one or more of the following dose reduction techniques: Automated exposure control, adjustment of the mA and/or kV according to patient size, and/or use of iterative reconstruction technique. FINDINGS: HEMORRHAGE: Parenchymal hemorrhage with edema measuring 1.9 x 2.3 x 4 cm. This appears to be emanating from the right lentiform nucleus. BRAIN: Edema manifested as effacement of ipsilateral lateral ventricle. Effacement of cortical sulci on the right also noted. Less than 3 mm midline shift. Edema extends from the right temporal lobe to the convexity, high right parietal lobe. VENTRICLES: Mild effacement of ipsilateral, right ventricle. Basilar cisterns are patent. No evidence of effacement. CALVARIUM: Unremarkable. PARANASAL SINUSES: Unremarkable as visualized. No significant inflammatory changes. MASTOID AIR CELLS: Unremarkable as visualized. No inflammatory changes. OTHER FINDINGS: None. IMPRESSION: Large parenchymal hemorrhage right hemisphere likely hypertensive based on location and appearance. Generalized edema without significant midline shift.
--- NOTE | 2018-03-27 19:57 | PN ---
DATE: 03/27/2018 [address] NOTE [address] Dr. Quispe. SUBJECTIVE: The patient is feeling fine. No acute complaints at present. Some weakness in the leg. PHYSICAL EXAMINATION: VITAL SIGNS: Stable. NECK: Supple. CHEST: Symmetrical. HEART: Sounds S1 and S2. ABDOMEN: Abdominal area is benign. EXTREMITIES: No clubbing, cyanosis, or edema. IMPRESSION: Acute intracerebral hemorrhage, hypertension, leukocytosis, and hypocholesterinemia. PLAN: For physical therapy, occupational therapy, and recreational therapy. Continue with therapy program. Tentative discharge for the patient to be discharged home on 04/10/2018. Kuldip Chawla MD
--- NOTE | 2018-03-28 07:45 | CP.PCM.CON ---
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 Patient reports that his b/l leg pain makes him feel depressed. He report difficulty sleeping at night. No AH/VH/SI/HI/paranoia/ delusions/bela/obsessions/compulsions. He also reports feeling anxious and worried about his health. PPHx: No past psychiatric treatment or hospitalizations. 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 Recommendations: -Start Cymbalta 30 mg PO Daily; increase to 60 mg PO Daily after 1 week -Outpatient psychiatry referral upon discharge -No acute inpatient psychiatric admission indicated Past Patient History - Tetanus Immunizations Tetanus Immunization: Unknown - Past Medical History & Family History Past Medical History?: Yes - Past Social History Smoking Status: Never Smoked Alcohol: None Drugs: Denies Home Situation {Lives}: With Family (+ stairs-10) - CARDIAC Hx Hypercholesterolemia: Yes Hx Hypertension: Yes - PULMONARY Hx Respiratory Disorders: No - NEUROLOGICAL Hx Neurological Disorder: No - HEENT Hx HEENT Problems: No - RENAL Hx Chronic Kidney Disease: No - ENDOCRINE/METABOLIC Hx Endocrine Disorders: No - HEMATOLOGICAL/ONCOLOGICAL Hx Blood Disorders: No - INTEGUMENTARY Hx Dermatological Problems: No - MUSCULOSKELETAL/RHEUMATOLOGICAL Hx Gout: Yes - GASTROINTESTINAL Hx Gastrointestinal Disorders: No - GENITOURINARY/GYNECOLOGICAL Hx Genitourinary Disorders: No - PSYCHIATRIC Hx Psychophysiologic Disorder: No Hx Substance Use: No - SURGICAL HISTORY Hx Surgeries: No - ANESTHESIA Hx Anesthesia: No Meds Allergies/Adverse Reactions: Allergies Allergy/AdvReac Type Severity Reaction Status Date / Time No Known Allergies Allergy Verified 03/22/18 19:43 - Medications Medications: Current Medications Acetaminophen (Tylenol 325mg Tab) 650 mg PO TID PRN PRN Reason: Pain, Mild (1-3) Amlodipine Besylate (Norvasc) 5 mg PO DAILY [facility] Last Admin: 03/27/18 09:02 Dose: 5 mg Atorvastatin Calcium (Lipitor) 40 mg PO HS [facility] Last Admin: 03/27/18 21:23 Dose: 40 mg Diphenhydramine HCl (Benadryl) 25 mg PO Q6 PRN PRN Reason: Itching / Pruritus Hydralazine HCl (Apresoline) 10 mg PO Q8@0600,1400,2200 [facility] Last Admin: 03/28/18 06:54 Dose: 10 mg Lactic Acid (Lac-Hydrin 12% Lotion (225 G)) 1 applic TOP 0600,1800 [facility] Last Admin: 03/28/18 06:55 Dose: 1 applic Metoprolol Tartrate (Lopressor) 50 mg PO Q12 [facility] Last Admin: 03/27/18 21:24 Dose: 50 mg Pantoprazole Sodium (Protonix Ec Tab) 40 mg PO DAILY [facility] Last Admin: 03/27/18 09:02 Dose: 40 mg Temazepam (Restoril) 15 mg PO HS PRN PRN Reason: Insomnia Last Admin: 03/27/18 21:23 Dose: 15 mg Tramadol HCl (Ultram) 50 mg PO Q6 PRN PRN Reason: Pain scale 4-10 Last Admin: 03/28/18 01:53 Dose: 50 mg Results - Vital Signs Recent Vital Signs: Last Vital Signs Temp 97.5 F L 03/27/18 20:39 Pulse 93 H 03/28/18 06:54 Resp 20 03/27/18 20:39 BP 116/67 03/28/18 06:54 Pulse Ox 97 03/27/18 20:39 - Labs Result Diagrams: 03/23/18 06:00 03/23/18 06:00
--- NOTE | 2018-03-28 07:52 | RAD ---
PROCEDURE: Right Knee Radiographs. HISTORY: rule out fracture COMPARISON: None. FINDINGS: BONES: No acute fracture or destructive bony lesion identified. JOINTS: Mild joint space narrowing is appreciate the medial and lateral femorotibial compartments with limited articular cortical sclerosis and trace osteophyte development. Joint space narrowing is also present at the patellofemoral articulation with more prominent osteophyte development and cortical sclerosis compatible with tricompartmental osteoarthritis of moderate severity. There is a moderate size suprapatellar bursa effusion. No subluxation or dislocation. JOINT EFFUSION: As above peer OTHER FINDINGS: None. IMPRESSION: Moderate tricompartment osteoarthritis. Moderate suprapatellar bursa effusion. No acute fracture or dislocation identified.
[2018-03-28] MEDS: Pantoprazole 40 mg EC Tab PO SCH (09:09)
--- NOTE | 2018-03-28 12:07 | CP.PCM.PN ---
Subjective - Date & Time of Evaluation Date of Evaluation: 03/28/18 Time of Evaluation: 12:07 - Subjective Subjective: Mr. Toussaint was seen and examined at the bedside. He is alert, oriented x3. He denies any headache, dizziness, lightheadedness, nausea, or vomiting. He is complaining of right knee pain, not swollen, x-ray showed osteoarthritis. He is able to follow simple commands with movement in his left side improving. He further states of improving transfer. He is being seen by a psychiatrist for depression.CT scan done showed large parenchymal hemorrhage right hemisphere likely hypertensive based on location and appearance. Generalized edema without significant midline shift.There was no untoward events overnight. Objective - Vital Signs/Intake and Output Vital Signs (last 24 hours): Temp Pulse Resp BP Pulse Ox 97.9 F 87 20 133/76 96 03/28/18 07:46 03/28/18 09:09 03/28/18 07:46 03/28/18 09:09 03/28/18 07:46 - Medications Medications: Current Medications Acetaminophen (Tylenol 325mg Tab) 650 mg PO TID PRN PRN Reason: Pain, Mild (1-3) Amlodipine Besylate (Norvasc) 5 mg PO DAILY [facility] Last Admin: 03/28/18 09:09 Dose: 5 mg Atorvastatin Calcium (Lipitor) 40 mg PO HS [facility] Last Admin: 03/27/18 21:23 Dose: 40 mg Diphenhydramine HCl (Benadryl) 25 mg PO Q6 PRN PRN Reason: Itching / Pruritus Duloxetine HCl (Cymbalta) 30 mg PO DAILY [facility] Hydralazine HCl (Apresoline) 10 mg PO Q8@0600,1400,2200 [facility] Last Admin: 03/28/18 06:54 Dose: 10 mg Lactic Acid (Lac-Hydrin 12% Lotion (225 G)) 1 applic TOP 0600,1800 [facility] Last Admin: 03/28/18 06:55 Dose: 1 applic Lidocaine (Lidoderm) 2 ea TD DAILY [facility] Metoprolol Tartrate (Lopressor) 50 mg PO Q12 [facility] Last Admin: 03/28/18 09:08 Dose: 50 mg Pantoprazole Sodium (Protonix Ec Tab) 40 mg PO DAILY [facility] Last Admin: 03/28/18 09:09 Dose: 40 mg Temazepam (Restoril) 15 mg PO HS PRN PRN Reason: Insomnia Last Admin: 03/27/18 21:23 Dose: 15 mg Tramadol HCl (Ultram) 50 mg PO Q6 PRN PRN Reason: Pain scale 4-10 Last Admin: 03/28/18 01:53 Dose: 50 mg - Labs Labs: 03/23/18 06:00 03/23/18 06:00 - Constitutional Appears: No Acute Distress - Head Exam Head Exam: NORMAL INSPECTION - Eye Exam Pupil Exam: PERRL - Neurological Exam Neurological Exam: Alert, Awake, Oriented x3 Neuro motor strength exam: Left Upper Extremity: 4, Right Upper Extremity: 5, Left Lower Extremity: 3, Right Lower Extremity: 4 Additional comments: Neurological unchanged from previous examination. Assessment and Plan (1) Basal ganglia hemorrhage Assessment & Plan: Case discussed with Dr. Burleson, continue all current medical, physical, occupational, and speech therapies. Recommend to maintain head of bed elevated at least 30 degrees, blood pressure and glycemic control. Recommend lidoderm patch one patch to bilateral knee daily on for 12 hours, off for 12 hours. If the knee pain worsen , please refer to primary team. Status: Acute
[2018-03-28] MEDS: Lidocaine 5% Patch TD SCH (13:04)
[2018-03-29] MEDS: Lidocaine 5% Patch TD SCH (08:50)
[2018-03-29] MEDS: Pantoprazole 40 mg EC Tab PO SCH (08:51)
--- NOTE | 2018-03-29 10:48 | CP.PCM.CON ---
History of Present Illness - History of Present Illness History of Present Illness: Pt is a 53 year old male admitted to [facility] and referred to the program writer for evaluation. Med history positive for recent CVA, and HTN. Social History: pt has been marrired for 2 years, no past marriages and no children. He has been renting a room in [place], patient spoke of siblings in [place]. He discussed plan for his to relocate to [place] and his plan for employment from family . Psych history denied, pt deneid a history of alcohol/substance abuse. Pt focused on pain at present and the pain interrupting his therapy. He spoke of the CVA and and struggling with the above. MSE: Pt alert, oriented x3, relevant/coherent, no psychosis, affect constricted , mood dsyphoric over status, no si no hi ideation. DX: ADjustment DX Plan: Continued Sup therapy Past Patient History - Tetanus Immunizations Tetanus Immunization: Unknown - Past Medical History & Family History Past Medical History?: Yes - Past Social History Smoking Status: Never Smoked Alcohol: None Drugs: Denies Home Situation {Lives}: With Family (+ stairs-10) - CARDIAC Hx Hypercholesterolemia: Yes Hx Hypertension: Yes - PULMONARY Hx Respiratory Disorders: No - NEUROLOGICAL Hx Neurological Disorder: No - HEENT Hx HEENT Problems: No - RENAL Hx Chronic Kidney Disease: No - ENDOCRINE/METABOLIC Hx Endocrine Disorders: No - HEMATOLOGICAL/ONCOLOGICAL Hx Blood Disorders: No - INTEGUMENTARY Hx Dermatological Problems: No - MUSCULOSKELETAL/RHEUMATOLOGICAL Hx Gout: Yes - GASTROINTESTINAL Hx Gastrointestinal Disorders: No - GENITOURINARY/GYNECOLOGICAL Hx Genitourinary Disorders: No - PSYCHIATRIC Hx Psychophysiologic Disorder: No Hx Substance Use: No - SURGICAL HISTORY Hx Surgeries: No - ANESTHESIA Hx Anesthesia: No Meds Allergies/Adverse Reactions: Allergies Allergy/AdvReac Type Severity Reaction Status Date / Time No Known Allergies Allergy Verified 03/22/18 19:43 - Medications Medications: Current Medications Acetaminophen (Tylenol 325mg Tab) 650 mg PO TID PRN PRN Reason: Pain, Mild (1-3) Amlodipine Besylate (Norvasc) 5 mg PO DAILY [facility] Last Admin: 03/29/18 08:51 Dose: 5 mg Atorvastatin Calcium (Lipitor) 40 mg PO HS [facility] Last Admin: 03/28/18 21:36 Dose: 40 mg Diphenhydramine HCl (Benadryl) 25 mg PO Q6 PRN PRN Reason: Itching / Pruritus Duloxetine HCl (Cymbalta) 30 mg PO DAILY [facility] Last Admin: 03/29/18 08:50 Dose: 30 mg Hydralazine HCl (Apresoline) 10 mg PO Q8@0600,1400,2200 [facility] Last Admin: 03/29/18 06:28 Dose: 10 mg Lactic Acid (Lac-Hydrin 12% Lotion (225 G)) 1 applic TOP 0600,1800 [facility] Last Admin: 03/29/18 06:23 Dose: 1 applic Lidocaine (Lidoderm) 2 ea TD DAILY [facility] Last Admin: 03/29/18 08:50 Dose: 2 ea Metoprolol Tartrate (Lopressor) 50 mg PO Q12 [facility] Last Admin: 03/29/18 08:51 Dose: 50 mg Pantoprazole Sodium (Protonix Ec Tab) 40 mg PO DAILY [facility] Last Admin: 03/29/18 08:51 Dose: 40 mg Temazepam (Restoril) 15 mg PO HS PRN PRN Reason: Insomnia Last Admin: 03/27/18 21:23 Dose: 15 mg Tramadol HCl (Ultram) 50 mg PO Q6 PRN PRN Reason: Pain scale 4-10 Last Admin: 03/28/18 13:03 Dose: 50 mg Results - Vital Signs Recent Vital Signs: Last Vital Signs Temp 97.9 F 03/29/18 08:28 Pulse 90 03/29/18 08:51 Resp 20 03/29/18 08:28 BP 118/66 03/29/18 08:51 Pulse Ox 93 L 03/29/18 08:28 - Labs Result Diagrams: 03/23/18 06:00 03/23/18 06:00
--- NOTE | 2018-03-29 11:25 | CP.PCM.PN ---
Subjective - Date & Time of Evaluation Date of Evaluation: 03/29/18 Time of Evaluation: 11:25 - Subjective Subjective: Mr. Toussaint was seen and examined at the bedside. He is alert, oriented x3. He denies any headache, dizziness, lightheadedness, nausea, or vomiting. He is complaining of mild right knee pain, not swollen, with lidoderm patch on. He is able to follow simple commands with movement in his left side improving. There was no untoward events overnight. Objective - Vital Signs/Intake and Output Vital Signs (last 24 hours): Temp Pulse Resp BP Pulse Ox 97.9 F 90 20 118/66 93 L 03/29/18 08:28 03/29/18 08:51 03/29/18 08:28 03/29/18 08:51 03/29/18 08:28 - Medications Medications: Current Medications Acetaminophen (Tylenol 325mg Tab) 650 mg PO TID PRN PRN Reason: Pain, Mild (1-3) Amlodipine Besylate (Norvasc) 5 mg PO DAILY [facility] Last Admin: 03/29/18 08:51 Dose: 5 mg Atorvastatin Calcium (Lipitor) 40 mg PO HS [facility] Last Admin: 03/28/18 21:36 Dose: 40 mg Diphenhydramine HCl (Benadryl) 25 mg PO Q6 PRN PRN Reason: Itching / Pruritus Duloxetine HCl (Cymbalta) 30 mg PO DAILY [facility] Last Admin: 03/29/18 08:50 Dose: 30 mg Hydralazine HCl (Apresoline) 10 mg PO Q8@0600,1400,2200 [facility] Last Admin: 03/29/18 06:28 Dose: 10 mg Lactic Acid (Lac-Hydrin 12% Lotion (225 G)) 1 applic TOP 0600,1800 [facility] Last Admin: 03/29/18 06:23 Dose: 1 applic Lidocaine (Lidoderm) 2 ea TD DAILY [facility] Last Admin: 03/29/18 08:50 Dose: 2 ea Metoprolol Tartrate (Lopressor) 50 mg PO Q12 [facility] Last Admin: 03/29/18 08:51 Dose: 50 mg Pantoprazole Sodium (Protonix Ec Tab) 40 mg PO DAILY [facility] Last Admin: 03/29/18 08:51 Dose: 40 mg Temazepam (Restoril) 15 mg PO HS PRN PRN Reason: Insomnia Last Admin: 03/27/18 21:23 Dose: 15 mg Tramadol HCl (Ultram) 50 mg PO Q6 PRN PRN Reason: Pain scale 4-10 Last Admin: 03/29/18 11:13 Dose: 50 mg - Labs Labs: 03/23/18 06:00 03/23/18 06:00 - Constitutional Appears: No Acute Distress - Head Exam Head Exam: NORMAL INSPECTION - Eye Exam Pupil Exam: PERRL - Neurological Exam Neurological Exam: Alert, Awake, Oriented x3 Neuro motor strength exam: Left Upper Extremity: 4, Right Upper Extremity: 5, Left Lower Extremity: 4, Right Lower Extremity: 5 Additional comments: Neurological unchanged from previous examination. Assessment and Plan (1) Basal ganglia hemorrhage Assessment & Plan: Case discussed with Dr. Burleson, continue all current medical, physical, occupational, and speech therapies. Recommend to maintain head of bed elevated at least 30 degrees, blood pressure and glycemic control. Status: Acute
--- NOTE | 2018-03-29 11:56 | CP.PCM.PN ---
Subjective - Date & Time of Evaluation Date of Evaluation: 03/29/18 Time of Evaluation: 11:00 - Subjective Subjective: Patient states he is doing well. Complaining of some mild knee pain during physical therapy. Also complaining of increased chest congestion today. Denies cough, fever, headache, n/v/d. tolerating therapies. Objective - Vital Signs/Intake and Output Vital Signs (last 24 hours): Temp Pulse Resp BP Pulse Ox 97.9 F 90 20 118/66 93 L 03/29/18 08:28 03/29/18 08:51 03/29/18 08:28 03/29/18 08:51 03/29/18 08:28 - Medications Medications: Current Medications Acetaminophen (Tylenol 325mg Tab) 650 mg PO TID PRN PRN Reason: Pain, Mild (1-3) Amlodipine Besylate (Norvasc) 5 mg PO DAILY [facility] Last Admin: 03/29/18 08:51 Dose: 5 mg Atorvastatin Calcium (Lipitor) 40 mg PO HS [facility] Last Admin: 03/28/18 21:36 Dose: 40 mg Diphenhydramine HCl (Benadryl) 25 mg PO Q6 PRN PRN Reason: Itching / Pruritus Duloxetine HCl (Cymbalta) 30 mg PO DAILY [facility] Last Admin: 03/29/18 08:50 Dose: 30 mg Guaifenesin (Robitussin) 200 mg PO Q6 PRN PRN Reason: Cough and congestion Hydralazine HCl (Apresoline) 10 mg PO Q8@0600,1400,2200 [facility] Last Admin: 03/29/18 06:28 Dose: 10 mg Lactic Acid (Lac-Hydrin 12% Lotion (225 G)) 1 applic TOP 0600,1800 [facility] Last Admin: 03/29/18 06:23 Dose: 1 applic Lidocaine (Lidoderm) 2 ea TD DAILY [facility] Last Admin: 03/29/18 08:50 Dose: 2 ea Metoprolol Tartrate (Lopressor) 50 mg PO Q12 [facility] Last Admin: 03/29/18 08:51 Dose: 50 mg Pantoprazole Sodium (Protonix Ec Tab) 40 mg PO DAILY [facility] Last Admin: 03/29/18 08:51 Dose: 40 mg Temazepam (Restoril) 15 mg PO HS PRN PRN Reason: Insomnia Last Admin: 05/30/18 21:23 Dose: 15 mg Tramadol HCl (Ultram) 50 mg PO Q6 PRN PRN Reason: Pain scale 4-10 Last Admin: 03/29/18 11:13 Dose: 50 mg - Labs Labs: 03/23/18 06:00 03/23/18 06:00 - Additional Findings Additional findings: Physical exam: Constitutional- cooperative, awake, alert Head- NCAT, PERRL Eye- PERRL, EOMI ENT- normal exam, MMM. Neck- normal inspection, supple, no JVD Respiratory- CTAB, no wheezes rales rhonchi Cardiovascular- RRR, +S1, +S2 no MRG GI/Abdominal- normal bowel sounds, soft, no mass, no hsm Skin- warm, dry Extremities Exam- normal capillary refill, normal inspection Neurological Exam- alert, awake, oriented Psych- normal mood, normal affect Assessment and Plan - Assessment and Plan (Free Text) Plan: 53 yo male with history of HTN and Gout claimed he was talking with his brother on the phone when he suddenly lost balance and was unable to get up. Denied LOC but claimed he hit his head on the wall on the way done. Patient was advised by his brother to get immediate attention but patient refused. He was not seen until 3 days later when his arrived from [place]. He was brought to [facility] on 03/16/2018 and was found to have left facial droop and slurred speech. CT scan showed large focal bleed at the right basal ganglia with sorrounding edema associated with mass effect. When patient became neurologically and hemodynamically stable he was transferred to Acute Rehab for PT/OT. 1. Acute CVA refer to PT/OT/ST for evaluation and management physiatry consult with Dr Mccray hold anti-platelets because of acute cerebral bleed continue statin and BP management Lipitor 40 mg po HS, keep LDL < 70 Dietary consult HOB at least 30 degress 2. HTN BP stable continue Amlodipine, Hydralazine and Metoprolol 3. Gout serum uric acid 4. Adjustment disorder Psychology consultation Psychiatry consultation Continue Cymbalts 5. Chest congestion Robitussin PRN 6. DVT prophylaxis venodyne boots while in bed
[2018-03-30] MEDS: Lidocaine 5% Patch TD SCH (09:03)
[2018-03-30] MEDS: Pantoprazole 40 mg EC Tab PO SCH (09:03)
--- NOTE | 2018-03-30 10:33 | CP.PCM.PN ---
Subjective - Date & Time of Evaluation Date of Evaluation: 03/29/18 Time of Evaluation: 11:00 - Subjective Subjective: no acute complaints of pain Objective - Vital Signs/Intake and Output Vital Signs (last 24 hours): Temp Pulse Resp BP Pulse Ox 97.7 F 96 H 20 108/80 95 03/30/18 08:00 03/30/18 09:02 03/30/18 08:00 03/30/18 09:02 03/30/18 08:00 - Medications Medications: Current Medications Acetaminophen (Tylenol 325mg Tab) 650 mg PO TID PRN PRN Reason: Pain, Mild (1-3) Last Admin: 03/29/18 13:14 Dose: 650 mg Amlodipine Besylate (Norvasc) 5 mg PO DAILY [facility] Last Admin: 03/30/18 09:02 Dose: 5 mg Atorvastatin Calcium (Lipitor) 40 mg PO HS [facility] Last Admin: 03/29/18 21:33 Dose: 40 mg Diphenhydramine HCl (Benadryl) 25 mg PO Q6 PRN PRN Reason: Itching / Pruritus Duloxetine HCl (Cymbalta) 30 mg PO DAILY [facility] Last Admin: 03/30/18 09:02 Dose: 30 mg Guaifenesin (Robitussin) 200 mg PO Q6 PRN PRN Reason: Cough and congestion Hydralazine HCl (Apresoline) 10 mg PO Q8@0600,1400,2200 [facility] Last Admin: 03/30/18 06:09 Dose: 10 mg Lactic Acid (Lac-Hydrin 12% Lotion (225 G)) 1 applic TOP 0600,1800 [facility] Last Admin: 03/30/18 06:10 Dose: 1 applic Lidocaine (Lidoderm) 2 ea TD DAILY [facility] Last Admin: 03/30/18 09:03 Dose: 2 ea Metoprolol Tartrate (Lopressor) 50 mg PO Q12 [facility] Last Admin: 03/30/18 09:02 Dose: 50 mg Pantoprazole Sodium (Protonix Ec Tab) 40 mg PO DAILY [facility] Last Admin: 03/30/18 09:03 Dose: 40 mg Temazepam (Restoril) 15 mg PO HS PRN PRN Reason: Insomnia Last Admin: 03/27/18 21:23 Dose: 15 mg Tramadol HCl (Ultram) 50 mg PO Q6 PRN PRN Reason: Pain scale 4-10 Last Admin: 03/30/18 08:03 Dose: 50 mg - Labs Labs: 03/23/18 06:00 03/23/18 06:00 - Head Exam Head Exam: ATRAUMATIC, NORMAL INSPECTION, NORMOCEPHALIC - Eye Exam Eye Exam: EOMI, Normal appearance Pupil Exam: NORMAL ACCOMODATION, PERRL - ENT Exam ENT Exam: Mucous Membranes Moist, Normal Exam - Neck Exam Neck Exam: Normal Inspection - Respiratory Exam Respiratory Exam: Clear to Ausculation Bilateral, NORMAL BREATHING PATTERN - Cardiovascular Exam Cardiovascular Exam: REGULAR RHYTHM - GI/Abdominal Exam GI & Abdominal Exam: Normal Bowel Sounds - Rectal Exam Rectal Exam: NORMAL INSPECTION - Exam External exam: NORMAL EXTERNAL EXAM - Back Exam Back Exam: NORMAL INSPECTION - Neurological Exam Neurological Exam: Alert, Awake Additional comments: weakness - Psychiatric Exam Psychiatric exam: Normal Affect, Normal Mood - Skin Skin Exam: Dry, Normal Color, Warm Assessment and Plan (1) Basal ganglia hemorrhage Assessment & Plan: plan for physical, occupational, rec and speech therapy for range of motion, strengthening,transfers and gait training covering For Dr Quispe Status: Acute
[2018-03-31] MEDS: Pantoprazole 40 mg EC Tab PO SCH (08:38)
[2018-03-31] MEDS: Lidocaine 5% Patch TD SCH (08:38)
--- NOTE | 2018-03-31 16:29 | CP.PCM.PN ---
Subjective - Date & Time of Evaluation Date of Evaluation: 03/30/18 Time of Evaluation: 12:30 - Subjective Subjective: no acute complaints at times occasional knee pain Objective - Vital Signs/Intake and Output Vital Signs (last 24 hours): Temp Pulse Resp BP Pulse Ox 97.7 F 80 20 96/84 L 97 03/31/18 08:00 03/31/18 13:10 03/31/18 08:00 03/31/18 13:10 03/31/18 08:00 - Medications Medications: Current Medications Acetaminophen (Tylenol 325mg Tab) 650 mg PO TID PRN PRN Reason: Pain, Mild (1-3) Last Admin: 03/30/18 13:25 Dose: 650 mg Amlodipine Besylate (Norvasc) 5 mg PO DAILY [facility] Last Admin: 03/31/18 08:38 Dose: 5 mg Atorvastatin Calcium (Lipitor) 40 mg PO HS [facility] Last Admin: 03/30/18 21:52 Dose: 40 mg Diphenhydramine HCl (Benadryl) 25 mg PO Q6 PRN PRN Reason: Itching / Pruritus Duloxetine HCl (Cymbalta) 30 mg PO DAILY [facility] Last Admin: 03/31/18 08:38 Dose: 30 mg Guaifenesin (Robitussin) 200 mg PO Q6 PRN PRN Reason: Cough and congestion Hydralazine HCl (Apresoline) 10 mg PO Q8@0600,1400,2200 [facility] Last Admin: 03/31/18 13:10 Dose: Not Given Lactic Acid (Lac-Hydrin 12% Lotion (225 G)) 1 applic TOP 0600,1800 [facility] Last Admin: 03/31/18 07:20 Dose: 1 applic Lidocaine (Lidoderm) 2 ea TD DAILY [facility] Last Admin: 03/31/18 08:38 Dose: 2 ea Metoprolol Tartrate (Lopressor) 50 mg PO Q12 [facility] Last Admin: 03/31/18 08:37 Dose: 50 mg Pantoprazole Sodium (Protonix Ec Tab) 40 mg PO DAILY [facility] Last Admin: 03/31/18 08:38 Dose: 40 mg Temazepam (Restoril) 15 mg PO HS PRN PRN Reason: Insomnia Last Admin: 03/27/18 21:23 Dose: 15 mg Tramadol HCl (Ultram) 50 mg PO Q6 PRN PRN Reason: Pain scale 4-10 Last Admin: 03/30/18 22:00 Dose: 50 mg - Labs Labs: 03/23/18 06:00 03/23/18 06:00 - Head Exam Head Exam: ATRAUMATIC, NORMAL INSPECTION, NORMOCEPHALIC - Eye Exam Eye Exam: EOMI, Normal appearance Pupil Exam: NORMAL ACCOMODATION, PERRL - ENT Exam ENT Exam: Mucous Membranes Moist, Normal Exam - Neck Exam Neck Exam: Full ROM, Normal Inspection - Respiratory Exam Respiratory Exam: Clear to Ausculation Bilateral, NORMAL BREATHING PATTERN - Cardiovascular Exam Cardiovascular Exam: REGULAR RHYTHM - GI/Abdominal Exam GI & Abdominal Exam: Soft, Normal Bowel Sounds - Exam External exam: NORMAL EXTERNAL EXAM - Extremities Exam Extremities Exam: Full ROM, Normal Capillary Refill, Normal Inspection - Back Exam Back Exam: NORMAL INSPECTION - Neurological Exam Neurological Exam: Alert, Awake Neuro motor strength exam: Left Upper Extremity: 3, Right Upper Extremity: 4, Left Lower Extremity: 3, Right Lower Extremity: 4 - Psychiatric Exam Psychiatric exam: Normal Affect, Normal Mood - Skin Skin Exam: Dry, Normal Color Assessment and Plan (1) Basal ganglia hemorrhage Assessment & Plan: plan for physical, occupational, recreational and speech therapy program for range of motion, strengthening transfers and gait training Monitor skin, pain meds, blood pressure and blood sugar. follow up with Neurologist. Status post Xray of the knee Continue with acute rehab Status: Acute
[2018-04-01] MEDS: Lidocaine 5% Patch TD SCH (08:05)
[2018-04-01] MEDS: Pantoprazole 40 mg EC Tab PO SCH (08:06)
--- NOTE | 2018-04-01 10:24 | CP.PCM.PN ---
Subjective - Date & Time of Evaluation Date of Evaluation: 04/01/18 Time of Evaluation: 10:24 - Subjective Subjective: Mr. Toussaint was seen and examined at the bedside. He is alert, oriented x3. He denies any headache, dizziness, lightheadedness, nausea, or vomiting. He is complaining of mild right knee pain, not swollen, with lidoderm patch on. He is able to follow simple commands with movement in his left side improving. There was no untoward events overnight. Objective - Vital Signs/Intake and Output Vital Signs (last 24 hours): Temp Pulse Resp BP Pulse Ox 97.3 F L 82 20 124/77 93 L 04/01/18 07:50 04/01/18 08:06 04/01/18 07:50 04/01/18 08:06 04/01/18 07:50 - Medications Medications: Current Medications Acetaminophen (Tylenol 325mg Tab) 650 mg PO TID PRN PRN Reason: Pain, Mild (1-3) Last Admin: 03/30/18 13:25 Dose: 650 mg Amlodipine Besylate (Norvasc) 5 mg PO DAILY [facility] Last Admin: 04/01/18 08:06 Dose: 5 mg Atorvastatin Calcium (Lipitor) 40 mg PO HS [facility] Last Admin: 03/31/18 21:24 Dose: 40 mg Diphenhydramine HCl (Benadryl) 25 mg PO Q6 PRN PRN Reason: Itching / Pruritus Duloxetine HCl (Cymbalta) 30 mg PO DAILY [facility] Last Admin: 04/01/18 08:05 Dose: 30 mg Guaifenesin (Robitussin) 200 mg PO Q6 PRN PRN Reason: Cough and congestion Hydralazine HCl (Apresoline) 10 mg PO Q8@0600,1400,2200 [facility] Last Admin: 04/01/18 06:42 Dose: 10 mg Lactic Acid (Lac-Hydrin 12% Lotion (225 G)) 1 applic TOP 0600,1800 [facility] Last Admin: 04/01/18 06:44 Dose: 1 applic Lidocaine (Lidoderm) 2 ea TD DAILY [facility] Last Admin: 04/01/18 08:05 Dose: 2 ea Metoprolol Tartrate (Lopressor) 50 mg PO Q12 [facility] Last Admin: 04/01/18 08:03 Dose: 50 mg Pantoprazole Sodium (Protonix Ec Tab) 40 mg PO DAILY [facility] Last Admin: 04/01/18 08:06 Dose: 40 mg Temazepam (Restoril) 15 mg PO HS PRN PRN Reason: Insomnia Last Admin: 03/27/18 21:23 Dose: 15 mg Tramadol HCl (Ultram) 50 mg PO Q6 PRN PRN Reason: Pain scale 4-10 Last Admin: 04/01/18 08:04 Dose: 50 mg - Labs Labs: 03/23/18 06:00 03/23/18 06:00 - Constitutional Appears: No Acute Distress - Head Exam Head Exam: ATRAUMATIC, NORMAL INSPECTION, NORMOCEPHALIC - Eye Exam Pupil Exam: PERRL - Neurological Exam Neurological Exam: Alert, Awake, Oriented x3 Neuro motor strength exam: Left Upper Extremity: 3, Right Upper Extremity: 5, Left Lower Extremity: 3, Right Lower Extremity: 5 Additional comments: Neurological unchanged from previous examination. Assessment and Plan (1) Basal ganglia hemorrhage Assessment & Plan: Case discussed with Dr. Nascimento, continue all current medical, physical, occupational, and speech therapies. Pending CT of the head without contrast.Recommend to maintain head of bed elevated at least 30 degrees, blood pressure and glycemic control. Status: Acute
--- NOTE | 2018-04-01 10:36 | CT ---
PROCEDURE: CT HEAD WITHOUT CONTRAST. HISTORY: follow up hemorrhagic stroke COMPARISON: None available. TECHNIQUE: Axial computed tomography images were obtained through the head/brain without intravenous contrast. Radiation dose: Total exam DLP = 989.25 mGy-cm. This CT exam was performed using one or more of the following dose reduction techniques: Automated exposure control, adjustment of the mA and/or kV according to patient size, and/or use of iterative reconstruction technique. FINDINGS: HEMORRHAGE: Intraparenchymal hemorrhage at the right lentiform loop nucleus is reiterated markedly smaller in volume measuring 3.6 x 1.9 cm with surrounding peripheral edema not significantly changed in the interval. No increased volume is appreciated and low minimal leftward midline shift is stable at 2 mm. BRAIN: Other than local edema surrounding right lentiform nuclear hemorrhage, no additional edema is appreciated throughout the remainder of the supra or infratentorial compartments. No suspicious extra-axial fluid collection. Brainstem and cerebellum are remain unremarkable as well as the left cerebral hemisphere. VENTRICLES: Unremarkable. No hydrocephalus. CALVARIUM: Unremarkable. PARANASAL SINUSES: Unremarkable as visualized. No significant inflammatory changes. MASTOID AIR CELLS: Unremarkable as visualized. No inflammatory changes. OTHER FINDINGS: None. IMPRESSION: Stable to diminished right basal ganglia intraparenchymal hemorrhage with local edema unchanged extending into the right temporal lobe anteriorly. Continued clinical and CT monitoring recommended.
--- NOTE | 2018-04-01 12:26 | CP.PCM.PN ---
Subjective - Date & Time of Evaluation Date of Evaluation: 04/01/18 Time of Evaluation: 11:30 - Subjective Subjective: Patient seen and examined. Sitting in chair in NAD. Complains of persistent severe knee pain bilaterally , at rest and especially with movement. BP slightly on the lower side Afrebrile Objective - Vital Signs/Intake and Output Vital Signs (last 24 hours): Temp Pulse Resp BP Pulse Ox 97.3 F L 82 20 124/77 93 L 04/01/18 07:50 04/01/18 08:06 04/01/18 07:50 04/01/18 08:04/01/18 07:50 - Medications Medications: Current Medications Acetaminophen (Tylenol 325mg Tab) 650 mg PO TID PRN PRN Reason: Pain, Mild (1-3) Last Admin: 03/30/18 13:25 Dose: 650 mg Amlodipine Besylate (Norvasc) 5 mg PO DAILY [facility] Last Admin: 04/01/18 08:06 Dose: 5 mg Atorvastatin Calcium (Lipitor) 40 mg PO HS [facility] Last Admin: 03/31/18 21:24 Dose: 40 mg Diphenhydramine HCl (Benadryl) 25 mg PO Q6 PRN PRN Reason: Itching / Pruritus Duloxetine HCl (Cymbalta) 30 mg PO DAILY [facility] Last Admin: 04/01/18 08:05 Dose: 30 mg Guaifenesin (Robitussin) 200 mg PO Q6 PRN PRN Reason: Cough and congestion Hydralazine HCl (Apresoline) 10 mg PO Q8@0600,1400,2200 [facility] Last Admin: 04/01/18 06:42 Dose: 10 mg Lactic Acid (Lac-Hydrin 12% Lotion (225 G)) 1 applic TOP 0600,1800 [facility] Last Admin: 04/01/18 06:44 Dose: 1 applic Lidocaine (Lidoderm) 2 ea TD DAILY [facility] Last Admin: 04/01/18 08:05 Dose: 2 ea Metoprolol Tartrate (Lopressor) 50 mg PO Q12 [facility] Last Admin: 04/01/18 08:03 Dose: 50 mg Pantoprazole Sodium (Protonix Ec Tab) 40 mg PO DAILY [facility] Last Admin: 04/01/18 08:06 Dose: 40 mg Temazepam (Restoril) 15 mg PO HS PRN PRN Reason: Insomnia Last Admin: 03/27/18 21:23 Dose: 15 mg Tramadol HCl (Ultram) 50 mg PO Q6 PRN PRN Reason: Pain scale 4-10 Last Admin: 04/01/18 08:04 Dose: 50 mg - Labs Labs: 03/23/18 06:00 03/23/18 06:00 - Constitutional Appears: Non-toxic, No Acute Distress, Other (overweight) - Head Exam Head Exam: ATRAUMATIC, NORMAL INSPECTION, NORMOCEPHALIC - Eye Exam Eye Exam: EOMI, Normal appearance, PERRL Pupil Exam: NORMAL ACCOMODATION - ENT Exam ENT Exam: Mucous Membranes Moist, Normal Exam - Neck Exam Neck Exam: Full ROM, Normal Inspection - Respiratory Exam Respiratory Exam: Clear to Ausculation Bilateral, Rhonchi (bilateral upper lobes ), NORMAL BREATHING PATTERN. absent: Rales, Wheezes, Respiratory Distress - Cardiovascular Exam Cardiovascular Exam: REGULAR RHYTHM, RRR, +S1, +S2. absent: JVD - GI/Abdominal Exam GI & Abdominal Exam: Soft, Normal Bowel Sounds. absent: Distended, Guarding, Tenderness, Rebound - Rectal Exam Rectal Exam: Deferred - Extremities Exam Extremities Exam: Full ROM, Normal Capillary Refill, Normal Inspection. absent : Calf Tenderness, Pedal Edema - Back Exam Back Exam: NORMAL INSPECTION - Neurological Exam Neurological Exam: Alert, Awake, CN II-XII Intact Additional comments: left side weakness - Psychiatric Exam Psychiatric exam: Flat Affect - Skin Skin Exam: Dry, Intact, Normal Color, Warm Assessment and Plan - Assessment and Plan (Free Text) Assessment: 53 yo male with history of HTN and Gout claimed he was talking with his brother on the phone when he suddenly lost balance and was unable to get up. Denied LOC but claimed he hit his head on the wall on the way done. Patient was advised by his brother to get immediate attention but patient refused. He was not seen until 3 days later when his arrived from [place]. He was brought to [facility] on 03/16/2018 and was found to have left facial droop and slurred speech. CT scan showed large focal bleed at the right basal ganglia with surrounding edema associated with mass effect. When patient became neurologically and hemodynamically stable he was transferred to Acute Rehab for PT/OT. At present in acute rehab, participating with PT. Complains severe bilateral knee pain . 1. Acute CVA Continue PT/OT/ST physiatry consult with Dr Mccray appreciated . hold anti-platelets because of acute cerebral bleed continue statin and BP management 2. HTN BPon the lower side D/c hydralazine Continue Norvasc and Metoprolol with holding parameters 3. Gout stable 4. Adjustment disorder Psychology and psychiatry consulted started Cymbalts 5. Chest congestion Robitussin PRN 6. Bilateral knee osteoarthritis Lidoderm patch, Ultram PRN for pain physiatry on board. Evaluate for possible intraarticular injection 7. DVT prophylaxis venodyne boots while in bed
[2018-04-02] MEDS: Pantoprazole 40 mg EC Tab PO SCH (08:29)
[2018-04-02] MEDS: Lidocaine 5% Patch TD SCH (08:29)
--- NOTE | 2018-04-02 12:31 | CP.PCM.PN ---
Subjective - Date & Time of Evaluation Date of Evaluation: 04/02/18 Time of Evaluation: 12:28 - Subjective Subjective: pt doing well participating in PT well pain in knees, discussed using Acetaminophen around the clock pt also complained of increased mucous production and cough. will evaluate labs , cxr, afebrile. hd stable no cp/sob/calf tenderness nad Objective - Vital Signs/Intake and Output Vital Signs (last 24 hours): Temp Pulse Resp BP Pulse Ox 97.9 F 90 20 146/80 95 04/02/18 08:01 04/02/18 08:29 04/02/18 08:01 04/02/18 08:29 04/02/18 08:01 - Medications Medications: Current Medications Acetaminophen (Tylenol 325mg Tab) 975 mg PO Q8 [facility] Amlodipine Besylate (Norvasc) 5 mg PO DAILY [facility] Last Admin: 04/02/18 08:27 Dose: 5 mg Atorvastatin Calcium (Lipitor) 40 mg PO HS [facility] Last Admin: 04/01/18 21:11 Dose: 40 mg Diphenhydramine HCl (Benadryl) 25 mg PO Q6 PRN PRN Reason: Itching / Pruritus Duloxetine HCl (Cymbalta) 30 mg PO DAILY [facility] Last Admin: 04/02/18 08:27 Dose: 30 mg Guaifenesin (Robitussin) 200 mg PO Q6 PRN PRN Reason: Cough and congestion Lactic Acid (Lac-Hydrin 12% Lotion (225 G)) 1 applic TOP BID PRN PRN Reason: Itching / Pruritus Lidocaine (Lidoderm) 2 ea TD DAILY [facility] Last Admin: 04/02/18 08:29 Dose: 2 ea Metoprolol Tartrate (Lopressor) 50 mg PO Q12 [facility] Last Admin: 04/02/18 08:29 Dose: 50 mg Pantoprazole Sodium (Protonix Ec Tab) 40 mg PO DAILY [facility] Last Admin: 04/02/18 08:29 Dose: 40 mg Temazepam (Restoril) 15 mg PO HS PRN PRN Reason: Insomnia Last Admin: 03/27/18 21:23 Dose: 15 mg Tramadol HCl (Ultram) 50 mg PO Q6 PRN PRN Reason: Pain scale 4-10 Last Admin: 04/02/18 08:26 Dose: 50 mg - Labs Labs: 03/23/18 06:00 03/23/18 06:00 Assessment and Plan - Assessment and Plan (Free Text) Plan: 53 yo male with history of HTN and Gout claimed he was talking with his brother on the phone when he suddenly lost balance and was unable to get up. Denied LOC but claimed he hit his head on the wall on the way done. Patient was advised by his brother to get immediate attention but patient refused. He was not seen until 3 days later when his arrived from [place]. He was brought to [facility] on 03/16/2018 and was found to have left facial droop and slurred speech. CT scan showed large focal bleed at the right basal ganglia with surrounding edema associated with mass effect. When patient became neurologically and hemodynamically stable he was transferred to Acute Rehab for PT/OT. At present in acute rehab, participating with PT. Complains severe bilateral knee pain . 1. Acute CVA Continue PT/OT/ST physiatry consult with Dr Shazia jaramillo . hold anti-platelets because of acute cerebral bleed continue statin and BP management 2. HTN BPon the lower side D/c hydralazine Continue Norvasc and Metoprolol with holding parameters 3. Gout stable 4. Adjustment disorder Psychology and psychiatry consulted started Cymbalts 5. Chest congestion Robitussin PRN worsening cough, mucous production - eval labs, cxr, afebrile. 6. Bilateral knee osteoarthritis Lidoderm patch, Ultram PRN for pain Pt initiated on Acetaminophine 975mg q8 hours physiatry on board. Evaluate for possible intraarticular injection 7. DVT prophylaxis venodyne boots while in bed
--- NOTE | 2018-04-02 13:36 | CP.PCM.PN ---
Subjective - Date & Time of Evaluation Date of Evaluation: 04/02/18 Time of Evaluation: 10:00 - Subjective Subjective: patient with problems with cough no other complaints at present Objective - Vital Signs/Intake and Output Vital Signs (last 24 hours): Temp Pulse Resp BP Pulse Ox 97.9 F 90 20 146/80 95 04/02/18 08:01 04/02/18 08:29 04/02/18 08:01 04/02/18 08:29 04/02/18 08:01 - Medications Medications: Current Medications Acetaminophen (Tylenol 325mg Tab) 975 mg PO Q8 [facility] Amlodipine Besylate (Norvasc) 5 mg PO DAILY [facility] Last Admin: 04/02/18 08:27 Dose: 5 mg Atorvastatin Calcium (Lipitor) 40 mg PO HS [facility] Last Admin: 04/01/18 21:11 Dose: 40 mg Diphenhydramine HCl (Benadryl) 25 mg PO Q6 PRN PRN Reason: Itching / Pruritus Duloxetine HCl (Cymbalta) 30 mg PO DAILY [facility] Last Admin: 04/02/18 08:27 Dose: 30 mg Guaifenesin (Robitussin) 200 mg PO Q6 PRN PRN Reason: Cough and congestion Lactic Acid (Lac-Hydrin 12% Lotion (225 G)) 1 applic TOP BID PRN PRN Reason: Itching / Pruritus Lidocaine (Lidoderm) 2 ea TD DAILY [facility] Last Admin: 04/02/18 08:29 Dose: 2 ea Metoprolol Tartrate (Lopressor) 50 mg PO Q12 [facility] Last Admin: 04/02/18 08:29 Dose: 50 mg Pantoprazole Sodium (Protonix Ec Tab) 40 mg PO DAILY [facility] Last Admin: 04/02/18 08:29 Dose: 40 mg Temazepam (Restoril) 15 mg PO HS PRN PRN Reason: Insomnia Last Admin: 03/27/18 21:23 Dose: 15 mg Tramadol HCl (Ultram) 50 mg PO Q6 PRN PRN Reason: Pain scale 4-10 Last Admin: 04/02/18 08:26 Dose: 50 mg - Labs Labs: 03/23/18 06:00 03/23/18 06:00 - Head Exam Head Exam: ATRAUMATIC, NORMAL INSPECTION, NORMOCEPHALIC - Eye Exam Eye Exam: EOMI, Normal appearance, PERRL Pupil Exam: NORMAL ACCOMODATION - ENT Exam ENT Exam: Mucous Membranes Moist, Normal Exam - Neck Exam Neck Exam: Full ROM, Normal Inspection - Respiratory Exam Respiratory Exam: Clear to Ausculation Bilateral, NORMAL BREATHING PATTERN - Cardiovascular Exam Cardiovascular Exam: REGULAR RHYTHM - GI/Abdominal Exam GI & Abdominal Exam: Soft, Normal Bowel Sounds - Rectal Exam Rectal Exam: NORMAL INSPECTION - Exam External exam: NORMAL EXTERNAL EXAM - Extremities Exam Extremities Exam: Full ROM, Normal Capillary Refill, Normal Inspection - Back Exam Back Exam: NORMAL INSPECTION - Neurological Exam Neurological Exam: Alert, Awake Neuro motor strength exam: Left Upper Extremity: 2/1, Right Upper Extremity: 3, Left Lower Extremity: 2/1, Right Lower Extremity: 3 - Psychiatric Exam Psychiatric exam: Normal Affect, Normal Mood - Skin Skin Exam: Dry, Intact Assessment and Plan (1) Basal ganglia hemorrhage Assessment & Plan: physical, occupational, therapy for range of motion, strengthening, transfers gait trainin Try Ultrasound, treatment o the knee chest xx ray pending Status: Acute
--- NOTE | 2018-04-02 13:48 | RAD ---
HISTORY: worsening cough COMPARISON: No prior. TECHNIQUE: Chest PA and lateral FINDINGS: LUNGS: No active pulmonary disease. PLEURA: No significant pleural effusion identified. No pneumothorax apparent. CARDIOVASCULAR: Cardiomediastinal silhouette at the upper limits of normal in size. OSSEOUS STRUCTURES: Degenerative changes. VISUALIZED UPPER ABDOMEN: Normal. OTHER FINDINGS: None. IMPRESSION: No active disease.
[2018-04-02 18:51] LABS: BASO # 0.1 K/uL (0.0-0.2); BASO % 0.9 % (0.0-2.0); EOS # 0.2 K/uL (0.0-0.7); EOS % 2.1 % (0.0-4.0); HEMOGLOBIN 13.8 g/dL (12.0-18.0); LYMPH # 1.7 K/uL (1.0-4.3); LYMPH % 16.9 % (20.0-40.0); MEAN CELL VOLUME 84.9 fl (80.0-94.0); MEAN CORPUSCULAR HEMOGLOBIN 28.4 pg (27.0-31.0); MEAN CORPUSCULAR HGB CONC 33.4 g/dL (33.0-37.0); MEAN PLATELET VOLUME 7.2 fl (7.2-11.7); MONO # 0.8 K/uL (0.0-0.8); MONO % 7.5 % (0.0-10.0); NEUT # 7.5 K/uL (1.8-7.0); NEUT % 72.6 % (50.0-75.0); NRBC % 0.2 % (0.0-0.0); RBC 4.85 Mil/uL (4.40-5.90); RED CELL DISTRIBUTION WIDTH 13.8 % (11.5-14.5); WHITE BLOOD COUNT 10.3 K/uL (4.8-10.8)
[2018-04-02 19:11] LABS: CALCIUM 9.5 mg/dL (8.4-10.2)
[2018-04-02] MEDS: guaiFENesin 200 mg/10 ml Syrup UD PO PRN (21:55)
[2018-04-03] MEDS: Pantoprazole 40 mg EC Tab PO SCH (08:42)
[2018-04-03] MEDS: Lidocaine 5% Patch TD SCH (08:44)
--- NOTE | 2018-04-03 10:11 | CP.PCM.PN ---
Subjective - Date & Time of Evaluation Date of Evaluation: 04/03/18 Time of Evaluation: 10:11 - Subjective Subjective: Mr. Toussaint was seen and examined at the bedside. He is alert, oriented x3. He denies any headache, dizziness, lightheadedness, nausea, or vomiting. He is complaining of mild right knee pain, not swollen, with lidoderm patch on. He is able to follow simple commands with movement in his left side improving. CT scan of the head showed stable to diminished right basal ganglia intraparenchymal hemorrhage with local edema unchanged extending into the right temporal lobe anteriorly.There was no untoward events overnight. Objective - Vital Signs/Intake and Output Vital Signs (last 24 hours): Temp Pulse Resp BP Pulse Ox 97.5 F L 82 20 139/81 95 04/03/18 07:43 04/03/18 08:43 04/03/18 07:43 04/03/18 08:43 04/03/18 07:43 - Medications Medications: Current Medications Amlodipine Besylate (Norvasc) 5 mg PO DAILY [facility] Last Admin: 04/03/18 08:43 Dose: 5 mg Atorvastatin Calcium (Lipitor) 40 mg PO HS [facility] Last Admin: 04/02/18 21:28 Dose: 40 mg Diphenhydramine HCl (Benadryl) 25 mg PO Q6 PRN PRN Reason: Itching / Pruritus Duloxetine HCl (Cymbalta) 30 mg PO DAILY [facility] Last Admin: 04/03/18 08:44 Dose: 30 mg Guaifenesin (Robitussin) 200 mg PO Q6 PRN PRN Reason: Cough and congestion Last Admin: 04/02/18 21:55 Dose: 200 mg Lactic Acid (Lac-Hydrin 12% Lotion (225 G)) 1 applic TOP BID PRN PRN Reason: Itching / Pruritus Lidocaine (Lidoderm) 2 ea TD DAILY [facility] Last Admin: 04/03/18 08:44 Dose: 2 ea Metoprolol Tartrate (Lopressor) 50 mg PO Q12 [facility] Last Admin: 04/03/18 08:42 Dose: 50 mg Pantoprazole Sodium (Protonix Ec Tab) 40 mg PO DAILY [facility] Last Admin: 04/03/18 08:42 Dose: 40 mg Temazepam (Restoril) 15 mg PO HS PRN PRN Reason: Insomnia Last Admin: 03/27/18 21:23 Dose: 15 mg Tramadol HCl (Ultram) 50 mg PO Q6 PRN PRN Reason: Pain scale 4-10 Last Admin: 04/03/18 08:37 Dose: 50 mg - Labs Labs: 04/02/18 18:25 04/02/18 18:25 - Constitutional Appears: No Acute Distress - Head Exam Head Exam: NORMAL INSPECTION - Eye Exam Pupil Exam: PERRL - Extremities Exam Extremities Exam: Normal Capillary Refill - Neurological Exam Neurological Exam: Alert, Awake, Oriented x3 Neuro motor strength exam: Left Upper Extremity: 4, Right Upper Extremity: 5, Left Lower Extremity: 4, Right Lower Extremity: 5 Additional comments: Neurological unchanged from previous examination. Assessment and Plan (1) Basal ganglia hemorrhage Assessment & Plan: Case discussed with Dr. Nascimento, continue all current medical, physical, occupational, and speech therapies. Recommend to maintain head of bed elevated at least 30 degrees, blood pressure and glycemic control. Status: Acute
--- NOTE | 2018-04-03 12:11 | PSY.TMCNF ---
Nursing - Vital Signs Vital Signs (Last 8 hours): Vital Signs 04/03/18 04/03/18 04/03/18 07:43 08:42 08:43 Temperature 97.5 F L Pulse Rate 82 82 82 Respiratory 20 Rate Blood Pressure 139/81 139/81 139/81 O2 Sat by Pulse 95 Oximetry Pain: 0 - Precautions: Precautions: Fall Prevention - Medications/Other Issues Comment: Pt at low nutritional risk. no goals. Follow-up due on 04/06/2018 - Consults Comment: Dr. Mccray, Dr. Oconnor - Toileting Toileting: Moderate Assistance - Bladder Management Voiding Method: Toilet, Urinal - Bowel Management Bowel Pattern: Normal Bowel Management: Moderate Assistance - Transfers Transfers: Moderate Assistance - ADL's ADL's: Moderate Assistance - Pain Management Comments: Tramadol for pain - Patient/Family Teaching Comments: N/A - Goals/Time Frame Comments: Per multidiscplinary team. Physical Therapy - Bed Mobility Bed Mobility: Minimal Assistance - Transfers Wheelchair to Mat: Minimal Assistance Sit to Stand: Contact Guard, Minimal Assistance - Ambulation Level of Assistance: Contact Guard Distance (ft.): 75 Assistive Devices: Rolling Walker - Stair Negotiation Stairs: Level of Assistance: Minimal Assistance Number of Stairs: 4 Handrails: Bilateral - Standing Balance Static Stand: Supervision Dynamic Stand: Contact Guard Assist, Minimal Assistance - Pain Management Techniques: Medication, Ice, Massage Comment: R knee - Insight/Carryover Insight/Carryover: Fair - Patient/Family Education Comment: Safety - Assessment/Plan Assessment: Pt with improved participation in PT tx sessions this week. Rajiv , pt continues to report 9/10 pain in R knee. Pt medicated by RN; therapist applies BioFreeze and trials Tom wrapping for stability. Pt performed bed mobiltiy with min A, transfers with CGA/min A, gait with RW adn CGA, negotiates stairs with CGA/min A. Pt will continue to benefit from skilled PT intervention to address deficits, reduce fall risk, and maximize functional independence. - Goals Timeframe: 2 weeks Goals: Sit < > supine mod I. Sit < > stand mod I with AD. Pt will ambulate 200 ft mod I with AD. Pt will ascend/descend flight of stairs mod I with handrail - Provider Therapist: chong License Number: [id number] Occupational Therapy - Arousal/Attention/Orientation Patient Orientation: Person, Place, Time, Appropriate to Age, Appropriate to Situation - ADL/IADL Self Feeding: Independent, Set-up Help Grooming: Supervision, Verbal Cues, Set-up Help Bathing-Upper Extremity: Supervision, Verbal Cues, Minimal Assistance Bathing-Lower Extremity: Supervision, Verbal Cues, Moderate Assistance Dressing-Upper Extremity: Supervision, Verbal Cues, Contact Guard Dressing-Lower Extremity: Supervision, Verbal Cues, Minimal Assistance, Moderate Assistance Comment: Homemaking skills: TBA - Sitting Balance Static Sitting: Independent without upper extremity support Dynamic Sitting: Reaches across midline, Reaches out of base of support, Reaches within base of support, Requires supervision Comment: seated at edge of d - Transfers Wheelchair to Bed Transfers: Verbal Cues, Contact Guard, Minimal Assistance Toilet Transfers: Verbal Cues, Set-up Help, Contact Guard, Minimal Assistance Comment: varies with level of pain - Wheelchair Management Level of Assistance: Verbal Cues, Set-up Help, Contact Guard, Minimal Assistance Distance (ft.): 150 - Upper Extremity Status Right Upper Extremity Comment: R UE AROM: WNL. Strength: 5/5; R stock selector: 50-55 lbs Left Upper Extremity Comment: L UE AROM: WFL in all planes. 3+/5 strength. L stock selector: 10-lbs throughout. Decreased gross/fine motor coordination L UE. Sensation: WNL for light touch and proprioception - Pain Alleviating Techniques: Medication, Ice, Massage Comment: R knee - Insight/Carryover Insight/Carryover: Fair - Patient/Family Education Comment: Safety - Assessment/Plan Assessment: Pt with improved participation in PT tx sessions this week. Rajiv pt continues to report 9/10 pain in R knee. Pt medicated by RN; therapist applies BioFreeze and trials Tom wrapping for stability. Pt performed bed mobiltiy with min A, transfers with CGA/min A, gait with RW adn CGA, negotiates stairs with CGA/min A. Pt will continue to benefit from skilled PT intervention to address deficits, reduce fall risk, and maximize functional independence. - Goals Timeframe: 2 weeks Goals: Sit < > supine mod I. Sit < > stand mod I with AD. Pt will ambulate 200 ft mod I with AD. Pt will ascend/descend flight of stairs mod I with handrail - Provider Therapist: Denise Duncan, OTR/L License Number: [id number] Speech Therapy - Plan Assessment: Pt with improved participation in PT tx sessions this week. Rajiv pt continues to report 9/10 pain in R knee. Pt medicated by RN; therapist applies BioFreeze and trials Tom wrapping for stability. Pt performed bed mobiltiy with min A, transfers with CGA/min A, gait with RW adn CGA, negotiates stairs with CGA/min A. Pt will continue to benefit from skilled PT intervention to address deficits, reduce fall risk, and maximize functional independence. Recreational Therapy - Participation Participation: Participates in Individual and/or Group Sessions - Attendance Attendance: 3-5 times per week - Activities Leisure Activities: Cards and Games - Socialization Level of Socialization: Initiates/interacts freely with care givers and peer - Diversional Time Diversional Time: plays dominoes, cards, watching television, movies - Assessment Assessment/Plan: Pt with improved participation in PT tx sessions this week. Rajiv pt continues to report 9/10 pain in R knee. Pt medicated by RN; therapist applies BioFreeze and trials Tom wrapping for stability. Pt performed bed mobiltiy with min A, transfers with CGA/min A, gait with RW adn CGA, negotiates stairs with CGA/min A. Pt will continue to benefit from skilled PT intervention to address deficits, reduce fall risk, and maximize functional independence. - Provider Therapist: Arianna Ozuna, [employer] #[id number] Nutrition - Current Diet Current Diet/ Supplement/ Feedings: Heart healthy: 2 gram Na diet - Appetite Percent Meal Consumed: 75-100% - Comments Comments: N/A - Assessment/Goals/Time Frame Assessment/Goals/Time Frame: Pt at low nutritional risk. no goals. Follow-up due on 04/06/2018 - Provider Provider: Kelley Shirley RD Case Management - Psychosocial Assessment Support Systems: Rachana uQiroga/spouse/[phone] Psychological Interventions/Needs: Pt is alert and oriented x3 Discharge Concerns: Pt temporarily renting a room on a 3rd floor walk up apt ( 15 stairs) per ; In process of finding a first level set up Patient/Family Meeting: CM met with pt and pt's with rehab team Intervention/Goal/Outcome:: 1. Tentative d/c date 04/10/18 home (either [place] or [place]) with and with referral for outpatient therapy 2. GOAL: Modified Ind 3. Caregiver training to be initiated; Will coordinate with 4. Continued stay review LAD: 03/27/18 (will send updates today) 5. DME to be determined - Discharge Plan Discharge Plan: Home with significant other/family, Outpatient rehab - Provider Provider: GALDINO Beckham, [employer] License Number: [id number] Rehabilitation Plan - Treatment Plan Treatment Plan: Physical Therapy, Occupational Therapy, Dietary, Patient/Family Education - Recommendation Recommendation: Physical Therapy, Occupational Therapy, Speech, Dietary, Patient /Family Education - Discharge Plan Discharge to: Home (13)
--- NOTE | 2018-04-03 13:30 | CP.PCM.PN ---
Subjective - Date & Time of Evaluation Date of Evaluation: 04/03/18 Time of Evaluation: 12:00 - Subjective Subjective: patient with less knee pain Objective - Vital Signs/Intake and Output Vital Signs (last 24 hours): Temp Pulse Resp BP Pulse Ox 97.5 F L 82 20 139/81 95 04/03/18 07:43 04/03/18 08:43 04/03/18 07:43 04/03/18 08:43 04/03/18 07:43 - Medications Medications: Current Medications Amlodipine Besylate (Norvasc) 5 mg PO DAILY [facility] Last Admin: 04/03/18 08:43 Dose: 5 mg Atorvastatin Calcium (Lipitor) 40 mg PO HS [facility] Last Admin: 04/02/18 21:28 Dose: 40 mg Diphenhydramine HCl (Benadryl) 25 mg PO Q6 PRN PRN Reason: Itching / Pruritus Duloxetine HCl (Cymbalta) 30 mg PO DAILY [facility] Last Admin: 04/03/18 08:44 Dose: 30 mg Guaifenesin (Robitussin) 200 mg PO Q6 PRN PRN Reason: Cough and congestion Last Admin: 04/02/18 21:55 Dose: 200 mg Lactic Acid (Lac-Hydrin 12% Lotion (225 G)) 1 applic TOP BID PRN PRN Reason: Itching / Pruritus Lidocaine (Lidoderm) 2 ea TD DAILY [facility] Last Admin: 04/03/18 08:44 Dose: 2 ea Metoprolol Tartrate (Lopressor) 50 mg PO Q12 [facility] Last Admin: 04/03/18 08:42 Dose: 50 mg Pantoprazole Sodium (Protonix Ec Tab) 40 mg PO DAILY [facility] Last Admin: 04/03/18 08:42 Dose: 40 mg Temazepam (Restoril) 15 mg PO HS PRN PRN Reason: Insomnia Last Admin: 03/27/18 21:23 Dose: 15 mg Tramadol HCl (Ultram) 50 mg PO Q6 PRN PRN Reason: Pain scale 4-10 Last Admin: 04/03/18 08:37 Dose: 50 mg - Labs Labs: 04/02/18 18:25 04/02/18 18:25 - Head Exam Head Exam: ATRAUMATIC, NORMAL INSPECTION, NORMOCEPHALIC - Eye Exam Eye Exam: EOMI, Normal appearance, PERRL Pupil Exam: NORMAL ACCOMODATION - ENT Exam ENT Exam: Mucous Membranes Moist, Normal Exam - Neck Exam Neck Exam: Normal Inspection - Respiratory Exam Respiratory Exam: Clear to Ausculation Bilateral, NORMAL BREATHING PATTERN - Cardiovascular Exam Cardiovascular Exam: REGULAR RHYTHM - GI/Abdominal Exam GI & Abdominal Exam: Soft, Normal Bowel Sounds - Rectal Exam Rectal Exam: NORMAL INSPECTION - Exam External exam: NORMAL EXTERNAL EXAM - Extremities Exam Extremities Exam: Full ROM, Normal Capillary Refill, Normal Inspection - Back Exam Back Exam: NORMAL INSPECTION - Neurological Exam Neurological Exam: Alert, Awake Neuro motor strength exam: Left Upper Extremity: 3, Left Lower Extremity: 3 - Psychiatric Exam Psychiatric exam: Normal Affect, Normal Mood - Skin Skin Exam: Dry, Intact Assessment and Plan (1) Basal ganglia hemorrhage Assessment & Plan: plan for physical, occupational , rec therapy DC 13 team conference bioflex to the knee Status: Acute
[2018-04-04] MEDS: Lidocaine 5% Patch TD SCH (09:23)
[2018-04-04] MEDS: Pantoprazole 40 mg EC Tab PO SCH (09:26)
--- NOTE | 2018-04-04 09:57 | CP.PCM.PN ---
Subjective - Date & Time of Evaluation Date of Evaluation: 04/04/18 Time of Evaluation: 09:57 - Subjective Subjective: Mr. Toussaint was seen and examined at the bedside. He is alert, oriented x3. He denies any headache, dizziness, lightheadedness, nausea, or vomiting. He is complaining of mild right knee pain, not swollen, with lidoderm patch on. He is able to follow simple commands with movement in his left side improving. There was no untoward events overnight. Objective - Vital Signs/Intake and Output Vital Signs (last 24 hours): Temp Pulse Resp BP Pulse Ox 97.9 F 89 20 123/80 96 04/04/18 07:46 04/04/18 09:26 04/04/18 07:46 04/04/18 09:26 04/04/18 07:46 - Medications Medications: Current Medications Amlodipine Besylate (Norvasc) 5 mg PO DAILY [facility] Last Admin: 04/04/18 09:26 Dose: 5 mg Atorvastatin Calcium (Lipitor) 40 mg PO HS [facility] Last Admin: 04/03/18 21:44 Dose: 40 mg Diphenhydramine HCl (Benadryl) 25 mg PO Q6 PRN PRN Reason: Itching / Pruritus Duloxetine HCl (Cymbalta) 30 mg PO DAILY [facility] Last Admin: 04/04/18 09:23 Dose: 30 mg Guaifenesin (Robitussin) 200 mg PO Q6 PRN PRN Reason: Cough and congestion Last Admin: 04/02/18 21:55 Dose: 200 mg Lactic Acid (Lac-Hydrin 12% Lotion (225 G)) 1 applic TOP BID PRN PRN Reason: Itching / Pruritus Lidocaine (Lidoderm) 2 ea TD DAILY [facility] Last Admin: 04/04/18 09:23 Dose: 2 ea Metoprolol Tartrate (Lopressor) 50 mg PO Q12 [facility] Last Admin: 04/04/18 09:25 Dose: 50 mg Pantoprazole Sodium (Protonix Ec Tab) 40 mg PO DAILY [facility] Last Admin: 04/04/18 09:26 Dose: 40 mg Temazepam (Restoril) 15 mg PO HS PRN PRN Reason: Insomnia Last Admin: 03/27/18 21:23 Dose: 15 mg Tramadol HCl (Ultram) 50 mg PO Q6 PRN PRN Reason: Pain scale 4-10 Last Admin: 04/04/18 09:29 Dose: 50 mg - Labs Labs: 04/02/18 18:25 04/02/18 18:25 - Constitutional Appears: No Acute Distress - Head Exam Head Exam: NORMAL INSPECTION - Eye Exam Pupil Exam: PERRL - Neurological Exam Neurological Exam: Alert, Awake, Oriented x3 Neuro motor strength exam: Left Upper Extremity: 4, Right Upper Extremity: 5, Left Lower Extremity: 4, Right Lower Extremity: 5 Additional comments: Neurological unchanged from previous examination. Assessment and Plan (1) Basal ganglia hemorrhage Assessment & Plan: Case discussed with Dr. Nascimento, continue all current medical, physical, occupational, and speech therapies. Recommend repeat CT scan of the head without contrast next week, to maintain head of bed elevated at least 30 degrees , blood pressure and glycemic control. Status: Acute
[2018-04-04] MEDS: guaiFENesin 200 mg/10 ml Syrup UD PO PRN (20:14)
[2018-04-05] MEDS: Pantoprazole 40 mg EC Tab PO SCH (08:03)
[2018-04-05] MEDS: Lidocaine 5% Patch TD SCH (08:03)
--- NOTE | 2018-04-05 13:30 | CP.PCM.PN ---
Subjective - Date & Time of Evaluation Date of Evaluation: 04/05/18 Time of Evaluation: 11:00 - Subjective Subjective: patient with less knee pain Objective - Vital Signs/Intake and Output Vital Signs (last 24 hours): Temp Pulse Resp BP Pulse Ox 97.3 F L 99 H 20 124/74 95 04/05/18 07:44 04/05/18 08:39 04/05/18 07:44 04/05/18 08:03 04/05/18 07:44 - Medications Medications: Current Medications Amlodipine Besylate (Norvasc) 5 mg PO DAILY [facility] Last Admin: 04/05/18 08:03 Dose: 5 mg Atorvastatin Calcium (Lipitor) 40 mg PO HS [facility] Last Admin: 04/04/18 21:49 Dose: 40 mg Diphenhydramine HCl (Benadryl) 25 mg PO Q6 PRN PRN Reason: Itching / Pruritus Duloxetine HCl (Cymbalta) 30 mg PO DAILY [facility] Last Admin: 04/05/18 08:02 Dose: 30 mg Guaifenesin (Robitussin) 200 mg PO Q6 PRN PRN Reason: Cough and congestion Last Admin: 04/04/18 20:14 Dose: 200 mg Lactic Acid (Lac-Hydrin 12% Lotion (225 G)) 1 applic TOP BID PRN PRN Reason: Itching / Pruritus Lidocaine (Lidoderm) 2 ea TD DAILY [facility] Last Admin: 04/05/18 08:03 Dose: 2 ea Metoprolol Tartrate (Lopressor) 50 mg PO Q12 [facility] Last Admin: 04/05/18 08:03 Dose: 50 mg Pantoprazole Sodium (Protonix Ec Tab) 40 mg PO DAILY [facility] Last Admin: 04/05/18 08:03 Dose: 40 mg Temazepam (Restoril) 15 mg PO HS PRN PRN Reason: Insomnia Last Admin: 03/27/18 21:23 Dose: 15 mg Tramadol HCl (Ultram) 50 mg PO Q6 PRN PRN Reason: Pain scale 4-10 Last Admin: 04/05/18 08:02 Dose: 50 mg - Labs Labs: 04/02/18 18:25 04/02/18 18:25 - Head Exam Head Exam: ATRAUMATIC, NORMAL INSPECTION, NORMOCEPHALIC - Eye Exam Eye Exam: EOMI, Normal appearance, PERRL Pupil Exam: NORMAL ACCOMODATION - ENT Exam ENT Exam: Mucous Membranes Moist, Normal Exam - Neck Exam Neck Exam: Normal Inspection - Respiratory Exam Respiratory Exam: Clear to Ausculation Bilateral, NORMAL BREATHING PATTERN - Cardiovascular Exam Cardiovascular Exam: REGULAR RHYTHM - GI/Abdominal Exam GI & Abdominal Exam: Soft - Rectal Exam Rectal Exam: NORMAL INSPECTION - Exam External exam: NORMAL EXTERNAL EXAM - Extremities Exam Extremities Exam: Full ROM, Normal Capillary Refill, Normal Inspection - Back Exam Back Exam: NORMAL INSPECTION - Neurological Exam Neurological Exam: Alert, Awake Neuro motor strength exam: Left Lower Extremity: 3, Right Lower Extremity: 3 - Psychiatric Exam Psychiatric exam: Normal Affect, Normal Mood - Skin Skin Exam: Dry, Intact Assessment and Plan (1) Basal ganglia hemorrhage Assessment & Plan: plan for physical, occupational rec and speech therapy. Tramadol for pain ultrasound , biofreeze and lidoderm path for knee Status: Acute
--- NOTE | 2018-04-05 15:38 | CP.PCM.PN ---
Subjective - Date & Time of Evaluation Date of Evaluation: 04/05/18 Time of Evaluation: 11:30 - Subjective Subjective: Patient seen and examined. Denied any complaint Objective - Vital Signs/Intake and Output Vital Signs (last 24 hours): Temp Pulse Resp BP Pulse Ox 97.3 F L 99 H 20 124/74 95 04/05/18 07:44 04/05/18 08:39 04/05/18 07:44 04/05/18 08:03 04/05/18 07:44 - Medications Medications: Current Medications Amlodipine Besylate (Norvasc) 5 mg PO DAILY [facility] Last Admin: 04/05/18 08:03 Dose: 5 mg Atorvastatin Calcium (Lipitor) 40 mg PO HS [facility] Last Admin: 04/04/18 21:49 Dose: 40 mg Diphenhydramine HCl (Benadryl) 25 mg PO Q6 PRN PRN Reason: Itching / Pruritus Duloxetine HCl (Cymbalta) 30 mg PO DAILY [facility] Last Admin: 04/05/18 08:02 Dose: 30 mg Guaifenesin (Robitussin) 200 mg PO Q6 PRN PRN Reason: Cough and congestion Last Admin: 04/04/18 20:14 Dose: 200 mg Lactic Acid (Lac-Hydrin 12% Lotion (225 G)) 1 applic TOP BID PRN PRN Reason: Itching / Pruritus Lidocaine (Lidoderm) 2 ea TD DAILY [facility] Last Admin: 04/05/18 08:03 Dose: 2 ea Metoprolol Tartrate (Lopressor) 50 mg PO Q12 [facility] Last Admin: 04/05/18 08:03 Dose: 50 mg Pantoprazole Sodium (Protonix Ec Tab) 40 mg PO DAILY [facility] Last Admin: 04/05/18 08:03 Dose: 40 mg Temazepam (Restoril) 15 mg PO HS PRN PRN Reason: Insomnia Last Admin: 03/27/18 21:23 Dose: 15 mg Tramadol HCl (Ultram) 50 mg PO Q4 PRN PRN Reason: Pain scale 4-10 Last Admin: 04/05/18 14:10 Dose: 50 mg - Labs Labs: 04/02/18 18:25 04/02/18 18:25 - Constitutional Appears: No Acute Distress - Head Exam Head Exam: ATRAUMATIC - Eye Exam Eye Exam: absent: Scleral icterus - ENT Exam ENT Exam: Mucous Membranes Moist - Neck Exam Neck Exam: absent: Meningismus - Respiratory Exam Respiratory Exam: absent: Rales, Rhonchi, Wheezes, Respiratory Distress - Cardiovascular Exam Cardiovascular Exam: REGULAR RHYTHM, +S1, +S2 - GI/Abdominal Exam GI & Abdominal Exam: Soft. absent: Tenderness - Rectal Exam Rectal Exam: Deferred - Neurological Exam Neurological Exam: Alert, Oriented x3 - Psychiatric Exam Psychiatric exam: Normal Affect - Skin Skin Exam: Dry, Intact Assessment and Plan - Assessment and Plan (Free Text) Assessment: 53 yo male with history of HTN and Gout claimed he was talking with his brother on the phone when he suddenly lost balance and was unable to get up. Denied LOC but claimed he hit his head on the wall on the way done. Patient was advised by his brother to get immediate attention but patient refused. He was not seen until 3 days later when his arrived from [place]. He was brought to [facility] on 03/16/2018 and was found to have left facial droop and slurred speech. CT scan showed large focal bleed at the right basal ganglia with surrounding edema associated with mass effect. When patient became neurologically and hemodynamically stable he was transferred to Acute [facility]hab for PT/OT. 1. Acute CVA continue PT/OT/ST physiatry consult with Dr Shazia jaramillo . hold anti-platelets because of acute cerebral bleed continue statin and BP management 2. HTN BP stable Continue Norvasc and Metoprolol 3. Gout stable 4. Adjustment disorder Psychology and psychiatry on consult continue Cymbalta 5. Osteoarthritis, Bilateral Knees Lidoderm patch, Ultram PRN for pain Pt initiated on Acetaminophine 975mg q8 hours physiatry on board. 7. DVT prophylaxis venodyne boots while in bed
[2018-04-05] MEDS: guaiFENesin 200 mg/10 ml Syrup UD PO PRN (21:11)
[2018-04-06] MEDS: Lidocaine 5% Patch TD SCH (08:52)
[2018-04-06] MEDS: Pantoprazole 40 mg EC Tab PO SCH (08:53)
[2018-04-06] MEDS: guaiFENesin 200 mg/10 ml Syrup UD PO PRN ×3 (11:22→23:38)
[2018-04-07] MEDS: guaiFENesin 200 mg/10 ml Syrup UD PO PRN ×3 (07:57→21:08)
[2018-04-07] MEDS: Lidocaine 5% Patch TD SCH (08:01)
[2018-04-07] MEDS: Pantoprazole 40 mg EC Tab PO SCH (08:01)
[2018-04-08] MEDS: Lidocaine 5% Patch TD SCH (08:24)
[2018-04-08] MEDS: Pantoprazole 40 mg EC Tab PO SCH (08:24)
--- NOTE | 2018-04-08 10:30 | CP.PCM.PN ---
Subjective - Date & Time of Evaluation Date of Evaluation: 04/08/18 Time of Evaluation: 10:30 - Subjective Subjective: Mr. Toussaint was seen and examined at the bedside. He is alert, oriented x3. He denies any headache, dizziness, lightheadedness, nausea, or vomiting. He is complaining of mild right knee pain, not swollen, with lidoderm patch on. He is able to follow simple commands with movement in his left side improving. There was no untoward events overnight. Objective - Vital Signs/Intake and Output Vital Signs (last 24 hours): Temp Pulse Resp BP Pulse Ox 97.7 F 88 20 137/84 97 04/08/18 07:39 04/08/18 08:23 04/08/18 07:39 04/08/18 08:23 04/08/18 07:39 - Medications Medications: Current Medications Amlodipine Besylate (Norvasc) 5 mg PO DAILY [facility] Last Admin: 04/08/18 08:22 Dose: 5 mg Atorvastatin Calcium (Lipitor) 40 mg PO HS [facility] Last Admin: 04/07/18 21:08 Dose: 40 mg Diphenhydramine HCl (Benadryl) 25 mg PO Q6 PRN PRN Reason: Itching / Pruritus Duloxetine HCl (Cymbalta) 30 mg PO DAILY [facility] Last Admin: 04/08/18 08:22 Dose: 30 mg Guaifenesin (Robitussin) 200 mg PO Q6 PRN PRN Reason: Cough and congestion Last Admin: 04/07/18 21:08 Dose: 200 mg Lactic Acid (Lac-Hydrin 12% Lotion (225 G)) 1 applic TOP BID PRN PRN Reason: Itching / Pruritus Lidocaine (Lidoderm) 2 ea TD DAILY [facility] Last Admin: 04/08/18 08:24 Dose: 2 ea Metoprolol Tartrate (Lopressor) 50 mg PO Q12 [facility] Last Admin: 04/08/18 08:23 Dose: 50 mg Pantoprazole Sodium (Protonix Ec Tab) 40 mg PO DAILY [facility] Last Admin: 04/08/18 08:24 Dose: 40 mg Temazepam (Restoril) 15 mg PO HS PRN PRN Reason: Insomnia Last Admin: 03/27/18 21:23 Dose: 15 mg Tramadol HCl (Ultram) 50 mg PO Q4 PRN PRN Reason: Pain scale 4-10 Last Admin: 04/08/18 05:57 Dose: 50 mg - Labs Labs: 04/02/18 18:25 04/02/18 18:25 - Constitutional Appears: No Acute Distress - Head Exam Head Exam: NORMAL INSPECTION - Eye Exam Pupil Exam: PERRL - Neurological Exam Neurological Exam: Alert, Awake, Oriented x3 Neuro motor strength exam: Left Upper Extremity: 4, Right Upper Extremity: 5, Left Lower Extremity: 3, Right Lower Extremity: 5 Additional comments: Neurological examination from previous examination. Assessment and Plan (1) Basal ganglia hemorrhage Assessment & Plan: Case discussed with Dr. Burleson, continue all current medical, physical, occupational, and speech therapies. Pending CT scan of the head without contrast , to maintain head of bed elevated at least 30 degrees, blood pressure and glycemic control. Status: Acute
--- NOTE | 2018-04-08 15:05 | US ---
PROCEDURE: Left lower extremity venous duplex Doppler. HISTORY: R/O DVT COMPARISON: None available. TECHNIQUE: Common femoral, superficial femoral, popliteal and posterior tibial veins were evaluated. Flow was assessed with color Doppler, compressibility, assessment of phasic flow and augmentation response. FINDINGS: COMMON FEMORAL VEIN: Unremarkable. SUPERFICIAL FEMORAL VEIN: Unremarkable. POPLITEAL VEIN: Unremarkable. POSTERIOR TIBIAL VEIN: Unremarkable. OTHER FINDINGS: None. IMPRESSION: No evidence of deep venous thrombosis in the left ower extremity.
--- NOTE | 2018-04-08 15:14 | CT ---
PROCEDURE: CT HEAD WITHOUT CONTRAST. HISTORY: follow up hemorrhagic stroke COMPARISON: CT head dated 04/01/2018. TECHNIQUE: Axial computed tomography images were obtained through the head/brain without intravenous contrast. Radiation dose: Total exam DLP = 927.6 mGy-cm. This CT exam was performed using one or more of the following dose reduction techniques: Automated exposure control, adjustment of the mA and/or kV according to patient size, and/or use of iterative reconstruction technique. FINDINGS: HEMORRHAGE: Decreased size of right lentiform nucleus hemorrhage now measuring proximal 1.5 x 1.8 cm with similar surrounding edema. No midline shift. BRAIN: As above. No atrophy or chronic microvascular ischemic changes. VENTRICLES: Unremarkable. No hydrocephalus. CALVARIUM: Unremarkable. PARANASAL SINUSES: Bilateral ethmoid, maxillary and sphenoid sinus disease. MASTOID AIR CELLS: Right mastoid air cell opacification. OTHER FINDINGS: None. IMPRESSION: Interval decreased size of right basal ganglia hemorrhage with similar appearance of adjacent edema. Bilateral paranasal sinus and right mastoid air cell disease as described above.
--- NOTE | 2018-04-08 16:29 | CP.PCM.CON ---
History of Present Illness - History of Present Illness History of Present Illness: Pt seen for sup therapy. Pt requesting additional/change of medication. Mood improved over CVA. pt spoke of intention of increased complaince. Pt discussed looking forward to return home. Affect brighter overall, patient preoccupied with pain issues during session. plan: Continued Sup Therapy Past Patient History - Tetanus Immunizations Tetanus Immunization: Unknown - Past Medical History & Family History Past Medical History?: Yes - Past Social History Smoking Status: Never Smoked Alcohol: None Drugs: Denies Home Situation {Lives}: With Family (+ stairs-10) - CARDIAC Hx Hypercholesterolemia: Yes Hx Hypertension: Yes - PULMONARY Hx Respiratory Disorders: No - NEUROLOGICAL Hx Neurological Disorder: No - HEENT Hx HEENT Problems: No - RENAL Hx Chronic Kidney Disease: No - ENDOCRINE/METABOLIC Hx Endocrine Disorders: No - HEMATOLOGICAL/ONCOLOGICAL Hx Blood Disorders: No - INTEGUMENTARY Hx Dermatological Problems: No - MUSCULOSKELETAL/RHEUMATOLOGICAL Hx Gout: Yes - GASTROINTESTINAL Hx Gastrointestinal Disorders: No - GENITOURINARY/GYNECOLOGICAL Hx Genitourinary Disorders: No - PSYCHIATRIC Hx Psychophysiologic Disorder: No Hx Substance Use: No - SURGICAL HISTORY Hx Surgeries: No - ANESTHESIA Hx Anesthesia: No Meds Allergies/Adverse Reactions: Allergies Allergy/AdvReac Type Severity Reaction Status Date / Time No Known Allergies Allergy Verified 03/22/18 19:43 - Medications Medications: Current Medications Amlodipine Besylate (Norvasc) 5 mg PO DAILY [facility] Last Admin: 04/08/18 08:22 Dose: 5 mg Atorvastatin Calcium (Lipitor) 40 mg PO HS [facility] Last Admin: 04/07/18 21:08 Dose: 40 mg Diphenhydramine HCl (Benadryl) 25 mg PO Q6 PRN PRN Reason: Itching / Pruritus Duloxetine HCl (Cymbalta) 30 mg PO DAILY [facility] Last Admin: 04/08/18 08:22 Dose: 30 mg Guaifenesin (Robitussin) 200 mg PO Q6 PRN PRN Reason: Cough and congestion Last Admin: 04/07/18 21:08 Dose: 200 mg Lactic Acid (Lac-Hydrin 12% Lotion (225 G)) 1 applic TOP BID PRN PRN Reason: Itching / Pruritus Lidocaine (Lidoderm) 2 ea TD DAILY [facility] Last Admin: 04/08/18 08:24 Dose: 2 ea Metoprolol Tartrate (Lopressor) 50 mg PO Q12 [facility] Last Admin: 04/08/18 08:23 Dose: 50 mg Pantoprazole Sodium (Protonix Ec Tab) 40 mg PO DAILY [facility] Last Admin: 04/08/18 08:24 Dose: 40 mg Temazepam (Restoril) 15 mg PO HS PRN PRN Reason: Insomnia Last Admin: 03/27/18 21:23 Dose: 15 mg Tramadol HCl (Ultram) 50 mg PO Q4 PRN PRN Reason: Pain scale 4-10 Last Admin: 04/08/18 12:17 Dose: 50 mg Results - Vital Signs Recent Vital Signs: Last Vital Signs Temp 97.7 F 04/08/18 07:39 Pulse 88 04/08/18 08:23 Resp 20 04/08/18 07:39 BP 137/84 04/08/18 08:23 Pulse Ox 97 04/08/18 07:39 - Labs Result Diagrams: 04/02/18 18:25 04/02/18 18:25
--- NOTE | 2018-04-08 17:20 | CP.PCM.PN ---
Subjective - Date & Time of Evaluation Date of Evaluation: 04/08/18 Time of Evaluation: 11:15 - Subjective Subjective: Patient seen and examined. Complained of increased pain on the left side of the body hindering his therapy. Objective - Vital Signs/Intake and Output Vital Signs (last 24 hours): Temp Pulse Resp BP Pulse Ox 97.7 F 98 H 20 137/84 97 04/08/18 07:39 04/08/18 08:48 04/08/18 07:39 04/08/18 08:23 04/08/18 07:39 - Medications Medications: Current Medications Amlodipine Besylate (Norvasc) 5 mg PO DAILY [facility] Last Admin: 04/08/18 08:22 Dose: 5 mg Atorvastatin Calcium (Lipitor) 40 mg PO HS [facility] Last Admin: 04/07/18 21:08 Dose: 40 mg Diphenhydramine HCl (Benadryl) 25 mg PO Q6 PRN PRN Reason: Itching / Pruritus Duloxetine HCl (Cymbalta) 30 mg PO DAILY [facility] Last Admin: 04/08/18 08:22 Dose: 30 mg Guaifenesin (Robitussin) 200 mg PO Q6 PRN PRN Reason: Cough and congestion Last Admin: 04/07/18 21:08 Dose: 200 mg Lactic Acid (Lac-Hydrin 12% Lotion (225 G)) 1 applic TOP BID PRN PRN Reason: Itching / Pruritus Lidocaine (Lidoderm) 2 ea TD DAILY [facility] Last Admin: 04/08/18 08:24 Dose: 2 ea Metoprolol Tartrate (Lopressor) 50 mg PO Q12 [facility] Last Admin: 04/08/18 08:23 Dose: 50 mg Pantoprazole Sodium (Protonix Ec Tab) 40 mg PO DAILY [facility] Last Admin: 04/08/18 08:24 Dose: 40 mg Temazepam (Restoril) 15 mg PO HS PRN PRN Reason: Insomnia Last Admin: 03/27/18 21:23 Dose: 15 mg Tramadol HCl (Ultram) 100 mg PO Q6 [facility] - Labs Labs: 04/02/18 18:25 04/02/18 18:25 - Constitutional Appears: No Acute Distress - Head Exam Head Exam: ATRAUMATIC - Eye Exam Eye Exam: absent: Scleral icterus - ENT Exam ENT Exam: Mucous Membranes Moist - Neck Exam Neck Exam: absent: Meningismus - Respiratory Exam Respiratory Exam: absent: Rales, Rhonchi, Wheezes, Respiratory Distress - Cardiovascular Exam Cardiovascular Exam: REGULAR RHYTHM, +S1, +S2 - GI/Abdominal Exam GI & Abdominal Exam: Soft. absent: Tenderness - Rectal Exam Rectal Exam: Deferred - Extremities Exam Extremities Exam: absent: Calf Tenderness, Pedal Edema - Back Exam Back Exam: NORMAL INSPECTION - Neurological Exam Neurological Exam: Alert, Oriented x3 - Psychiatric Exam Psychiatric exam: Normal Affect - Skin Skin Exam: Dry, Intact Assessment and Plan - Assessment and Plan (Free Text) Assessment: 53 yo male with history of HTN and Gout claimed he was talking with his brother on the phone when he suddenly lost balance and was unable to get up. Denied LOC but claimed he hit his head on the wall on the way done. Patient was advised by his brother to get immediate attention but patient refused. He was not seen until 3 days later when his arrived from [place]. He was brought to [facility] on 03/16/2018 and was found to have left facial droop and slurred speech. CT scan showed large focal bleed at the right basal ganglia with surrounding edema associated with mass effect. When patient became neurologically and hemodynamically stable he was transferred to Acute [facility]hab for PT/OT. 1. Acute CVA tolerating PT/OT/ST physiatry consult with Dr Shazia jaramillo . hold anti-platelets because of acute basal ganglia bleed continue statin and BP control 2. HTN BP stable Continue Norvasc and Metoprolol 3. Gout stable 4. Adjustment disorder Psychology and psychiatry on consult continue Cymbalta 5. Osteoarthritis, Bilateral Knees Lidoderm patch, Ultram increased to 100mg PO q 6hrs PRN for pain Pt initiated on Acetaminophine 975mg q8 hours physiatry on board. 7. DVT prophylaxis venodyne boots while in bed
[2018-04-09 07:48] VITALS: RESP 20
[2018-04-09] MEDS: Lidocaine 5% Patch TD SCH (08:10)
[2018-04-09] MEDS: Pantoprazole 40 mg EC Tab PO SCH (08:10)
--- NOTE | 2018-04-09 15:03 | CP.PCM.PN ---
Subjective - Date & Time of Evaluation Date of Evaluation: 04/09/18 Time of Evaluation: 11:00 - Subjective Subjective: no acute neck pain, vague aches and pain in joints Objective - Vital Signs/Intake and Output Vital Signs (last 24 hours): Temp Pulse Resp BP Pulse Ox 97.5 F L 94 H 20 140/89 95 04/09/18 07:47 04/09/18 08:48 04/09/18 07:47 04/09/18 08:09 04/09/18 07:47 - Medications Medications: Current Medications Amlodipine Besylate (Norvasc) [address] [facility] Last Admin: 04/09/18 08:09 Dose: 5 mg Atorvastatin Calcium (Lipitor) [address] [facility] Last Admin: 04/08/18 22:15 Dose: 40 mg Diphenhydramine HCl (Benadryl) 25 mg PO Q6 PRN PRN Reason: Itching / Pruritus Duloxetine HCl (Cymbalta) [address] [facility] Guaifenesin (Robitussin) 200 mg PO Q6 PRN PRN Reason: Cough and congestion Last Admin: 04/07/18 21:08 Dose: 200 mg Lactic Acid (Lac-Hydrin 12% Lotion (225 G)) 1 applic TOP BID PRN PRN Reason: Itching / Pruritus Lidocaine (Lidoderm) [address] [facility] Last Admin: 04/09/18 08:10 Dose: 2 ea Metoprolol Tartrate (Lopressor) [address] [facility] Last Admin: 04/09/18 08:09 Dose: 50 mg Pantoprazole Sodium (Protonix Ec Tab) [address] [facility] Last Admin: 04/09/18 08:10 Dose: 40 mg Temazepam (Restoril) 15 mg PO HS PRN PRN Reason: Insomnia Last Admin: 03/27/18 21:23 Dose: 15 mg Tramadol HCl (Ultram) 100 mg PO Q6 PRN PRN Reason: Pain scale 4-10 Last Admin: 04/09/18 14:37 Dose: 100 mg - Labs Labs: 04/02/18 18:25 04/02/18 18:25 - Head Exam Head Exam: ATRAUMATIC, NORMAL INSPECTION, NORMOCEPHALIC - Eye Exam Eye Exam: EOMI, Normal appearance, PERRL Pupil Exam: NORMAL ACCOMODATION - ENT Exam ENT Exam: Mucous Membranes Moist, Normal Exam - Neck Exam Neck Exam: Full ROM, Normal Inspection - Respiratory Exam Respiratory Exam: Clear to Ausculation Bilateral, NORMAL BREATHING PATTERN - Cardiovascular Exam Cardiovascular Exam: REGULAR RHYTHM - GI/Abdominal Exam GI & Abdominal Exam: Soft, Normal Bowel Sounds - Rectal Exam Rectal Exam: NORMAL INSPECTION - Exam External exam: NORMAL EXTERNAL EXAM - Extremities Exam Extremities Exam: Full ROM, Normal Capillary Refill - Back Exam Back Exam: NORMAL INSPECTION - Neurological Exam Neurological Exam: Alert, Awake Neuro motor strength exam: Left Upper Extremity: 3, Left Lower Extremity: 3 - Psychiatric Exam Psychiatric exam: Normal Affect, Normal Mood - Skin Skin Exam: Dry, Intact Assessment and Plan (1) Basal ganglia hemorrhage Assessment & Plan: plan for physical, occupational, rec and speech therapy for Dc planning follow up with PMd and ortho or rheumatology after Dc equipment for home Status: Acute
[2018-04-10 07:43] VITALS: BP 135/81; PULSE 94; TEMP 97.7; O2SAT 97
[2018-04-10] MEDS: Lidocaine 5% Patch TD SCH (08:50)
[2018-04-10] MEDS: Pantoprazole 40 mg EC Tab PO SCH (08:56)
--- NOTE | 2018-04-10 10:22 | CP.PCM.DIS ---
Provider - Provider Date of Admission: 03/22/18 19:51 Attending physician: Manuel King MD Consults: Dr Benjy Brito Time Spent in preparation of Discharge (in minutes): 25 Diagnosis - Discharge Diagnosis (1) Basal ganglia hemorrhage Status: Acute Comment: did well with PT/OT/ST. ASA held because of bleed. continue statin and BP management (2) HTN (hypertension) Status: Chronic Comment: BP controlled. continue Norvasc and Metoprolol (3) Osteoarthritis Status: Acute Comment: on Ultram for pain management Hospital Course - Lab Results Lab Results: Most Recent Lab Values WBC 10.3 K/uL (4.8-10.8) 04/02/18 18:25 RBC 4.85 Mil/uL (4.40-5.90) 04/02/18 18:25 Hgb 13.8 g/dL (12.0-18.0) 04/02/18 18:25 Hct 41.1 % (35.0-51.0) 04/02/18 18:25 MCV 84.9 fl (80.0-94.0) 04/02/18 18:25 MCH 28.4 pg (27.0-31.0) 04/02/18 18:25 MCHC 33.4 g/dL (33.0-37.0) 04/02/18 18:25 RDW 13.8 % (11.5-14.5) 04/02/18 18:25 Plt Count 645 K/uL (130-400) H D 04/02/18 18:25 MPV 7.2 fl (7.2-11.7) 04/02/18 18:25 Neut % (Auto) 72.6 % (50.0-75.0) 04/02/18 18:25 Lymph % (Auto) 16.9 % (20.0-40.0) L 04/02/18 18:25 Crowley % (Auto) 7.5 % (0.0-10.0) 04/02/18 18:25 Eos % (Auto) 2.1 % (0.0-4.0) 04/02/18 18:25 Baso % (Auto) 0.9 % (0.0-2.0) 04/02/18 18:25 Neut # (Auto) 7.5 K/uL (1.8-7.0) H 04/02/18 18:25 Lymph # (Auto) 1.7 K/uL (1.0-4.3) 04/02/18 18:25 Crowley # (Auto) 0.8 K/uL (0.0-0.8) 04/02/18 18:25 Eos # (Auto) 0.2 K/uL (0.0-0.7) 04/02/18 18:25 Baso # (Auto) 0.1 K/uL (0.0-0.2) 04/02/18 18:25 Sodium 137 mmol/l (132-148) 04/02/18 18:25 Potassium 4.4 MMOL/L (3.6-5.0) 04/02/18 18:25 Chloride 97 mmol/L (98-107) L 04/02/18 18:25 Carbon Dioxide 24 mmol/L (22-30) 04/02/18 18:25 Anion Gap 20 (10-20) 04/02/18 18:25 BUN 25 mg/dl (9-20) H 04/02/18 18:25 Creatinine 1.5 mg/dl (0.8-1.5) 04/02/18 18:25 Est GFR ( Amer) 59 04/02/18 18:25 Est GFR (Non-Af Amer) 49 04/02/18 18:25 Random Glucose 116 mg/dL (75-110) H 04/02/18 18:25 Uric Acid 7.4 mg/Dl (3.5-8.5) 03/25/18 17:12 Calcium 9.5 mg/dL (8.4-10.2) 04/02/18 18:25 Total Bilirubin 0.4 mg/dl (0.2-1.3) 03/27/18 06:30 Direct Bilirubin 0.3 mg/ml (0.0-0.4) 03/27/18 06:30 AST 64 U/L (17-59) H D 03/27/18 06:30 ALT 124 U/L (21-72) H 03/27/18 06:30 Alkaline Phosphatase 164 U/L (38-126) H 03/27/18 06:30 Total Protein 7.4 G/DL (6.3-8.2) 03/27/18 06:30 Albumin 3.4 g/dL (3.5-5.0) L 03/27/18 06:30 Globulin 4.0 gm/dL (2.2-3.9) H 03/27/18 06:30 Albumin/Globulin Ratio 0.9 (1.0-2.1) L 03/27/18 06:30 Procalcitonin 0.10 NG/ML (0.19-0.49) L 04/02/18 18:25 - Hospital Course Hospital Course: 53 yo male with history of HTN and Gout claimed he was talking with his brother on the phone when he suddenly lost balance and was unable to get up. Denied LOC but claimed he hit his head on the wall on the way done. Patient was advised by his brother to get immediate attention but patient refused. He was not seen until 3 days later when his arrived from [place]. He was brought to [facility] on 03/16/2018 and was found to have left facial droop and slurred speech. CT scan showed large focal bleed at the right basal ganglia with sorrounding edema associated with mass effect. When patient became neurologically and hemodynamically stable he was transferred to [facility] for PT/OT. He did well with therapy and now is ready for discharge. He will continue therapy as outpatient. Discharge Exam - Head Exam Head Exam: ATRAUMATIC, NORMAL INSPECTION, NORMOCEPHALIC - Eye Exam Eye Exam: absent: Scleral icterus - ENT Exam ENT Exam: Mucous Membranes Moist - Respiratory Exam Respiratory Exam: absent: Rales, Rhonchi, Wheezes, Respiratory Distress - Cardiovascular Exam Cardiovascular Exam: REGULAR RHYTHM, +S1, +S2 - GI/Abdominal Exam GI & Abdominal Exam: Soft. absent: Tenderness - Rectal Exam Rectal Exam: Deferred - Back Exam Back exam: NORMAL INSPECTION - Neurological Exam Neurological exam: Alert, Oriented x3 - Skin Skin Exam: Dry, Intact Discharge Plan - Discharge Medications Prescriptions: amLODIPine [Norvasc] 5 mg PO DAILY #30 tab Atorvastatin [Lipitor] 40 mg PO HS #30 tab DULoxetine [Cymbalta] 60 mg PO DAILY #30 ecc Metoprolol Tartrate [Lopressor] 50 mg PO BID #60 tab traMADol [Ultram] 100 mg PO Q6 PRN #20 tab PRN Reason: Pain scale 4-10 - Follow Up Plan Condition: GOOD Disposition: HOME/ ROUTINE Instructions: Heart Healthy Diet, Stroke (DC), Lidocaine (Topical), Amlodipine , Atorvastatin, Duloxetine, Guaifenesin, Metoprolol, Pantoprazole, Temazepam, Tramadol
--- NOTE | 2018-04-10 10:32 | CP.PCM.PN ---
Subjective - Date & Time of Evaluation Date of Evaluation: 04/10/18 Time of Evaluation: 10:32 - Subjective Subjective: Mr. Toussaint was seen and examined at the bedside. He is alert, oriented x3. He denies any headache, dizziness, lightheadedness, nausea, or vomiting. He is able to follow simple commands with movement in his left side improving. There was no untoward events overnight. Objective - Vital Signs/Intake and Output Vital Signs (last 24 hours): Temp Pulse Resp BP Pulse Ox 97.7 F 94 H 20 135/81 97 04/10/18 07:42 04/10/18 08:51 04/10/18 07:42 04/10/18 08:51 04/10/18 07:42 - Medications Medications: Current Medications Amlodipine Besylate (Norvasc) 5 mg PO DAILY [facility] Last Admin: 04/10/18 08:51 Dose: 5 mg Atorvastatin Calcium (Lipitor) 40 mg PO HS [facility] Last Admin: 04/09/18 21:18 Dose: 40 mg Diphenhydramine HCl (Benadryl) 25 mg PO Q6 PRN PRN Reason: Itching / Pruritus Duloxetine HCl (Cymbalta) 60 mg PO DAILY [facility] Last Admin: 04/10/18 08:50 Dose: 60 mg Guaifenesin (Robitussin) 200 mg PO Q6 PRN PRN Reason: Cough and congestion Last Admin: 04/07/18 21:08 Dose: 200 mg Lactic Acid (Lac-Hydrin 12% Lotion (225 G)) 1 applic TOP BID PRN PRN Reason: Itching / Pruritus Lidocaine (Lidoderm) 2 ea TD DAILY [facility] Last Admin: 04/10/18 08:50 Dose: 2 ea Metoprolol Tartrate (Lopressor) 50 mg PO Q12 [facility] Last Admin: 04/10/18 08:50 Dose: 50 mg Pantoprazole Sodium (Protonix Ec Tab) 40 mg PO DAILY [facility] Last Admin: 04/10/18 08:56 Dose: 40 mg Temazepam (Restoril) 15 mg PO HS PRN PRN Reason: Insomnia Last Admin: 03/27/18 21:23 Dose: 15 mg Tramadol HCl (Ultram) 100 mg PO Q6 PRN PRN Reason: Pain scale 4-10 Last Admin: 04/10/18 04:49 Dose: 100 mg - Labs Labs: 04/02/18 18:25 04/02/18 18:25 - Constitutional Appears: No Acute Distress - Head Exam Head Exam: NORMAL INSPECTION - Eye Exam Pupil Exam: PERRL - Neurological Exam Neurological Exam: Alert, Awake Neuro motor strength exam: Left Upper Extremity: 4, Right Upper Extremity: 5, Left Lower Extremity: 4, Right Lower Extremity: 5 Additional comments: Neurological unchanged from previous examination. Assessment and Plan (1) Basal ganglia hemorrhage Assessment & Plan: Case discussed with Dr. Burleson, continue all current medical, physical, occupational, and speech therapies. Recommend blood pressure, glycemic control, and an outpatient neurological follow up, if patient will stay within the area, to follow up with Dr. Burleson/ [facility] at [address] [place] [address], [address] [place] [id number] tel. [phone]. Status: Acute
--- NOTE | 2018-04-10 13:57 | CP.PCM.PN ---
Subjective - Date & Time of Evaluation Date of Evaluation: 04/07/18 Time of Evaluation: 13:00 - Subjective Subjective: no acute complaints of pain Objective - Vital Signs/Intake and Output Vital Signs (last 24 hours): Temp Pulse Resp BP Pulse Ox 97.7 F 94 H 20 135/81 97 04/10/18 07:42 04/10/18 08:51 04/10/18 07:42 04/10/18 08:51 04/10/18 07:42 - Medications Medications: Current Medications Amlodipine Besylate (Norvasc) 5 mg PO DAILY [facility] Last Admin: 04/10/18 08:51 Dose: 5 mg Atorvastatin Calcium (Lipitor) 40 mg PO HS [facility] Last Admin: 04/09/18 21:18 Dose: 40 mg Diphenhydramine HCl (Benadryl) 25 mg PO Q6 PRN PRN Reason: Itching / Pruritus Duloxetine HCl (Cymbalta) 60 mg PO DAILY [facility] Last Admin: 04/10/18 08:50 Dose: 60 mg Guaifenesin (Robitussin) 200 mg PO Q6 PRN PRN Reason: Cough and congestion Last Admin: 04/07/18 21:08 Dose: 200 mg Lactic Acid (Lac-Hydrin 12% Lotion (225 G)) 1 applic TOP BID PRN PRN Reason: Itching / Pruritus Lidocaine (Lidoderm) 2 ea TD DAILY [facility] Last Admin: 04/10/18 08:50 Dose: 2 ea Metoprolol Tartrate (Lopressor) 50 mg PO Q12 [facility] Last Admin: 04/10/18 08:50 Dose: 50 mg Pantoprazole Sodium (Protonix Ec Tab) 40 mg PO DAILY [facility] Last Admin: 04/10/18 08:56 Dose: 40 mg Temazepam (Restoril) 15 mg PO HS PRN PRN Reason: Insomnia Last Admin: 03/27/18 21:23 Dose: 15 mg Tramadol HCl (Ultram) 100 mg PO Q6 PRN PRN Reason: Pain scale 4-10 Last Admin: 04/10/18 04:49 Dose: 100 mg - Labs Labs: 04/02/18 18:25 04/02/18 18:25 - Head Exam Head Exam: ATRAUMATIC, NORMAL INSPECTION, NORMOCEPHALIC - Eye Exam Eye Exam: EOMI, Normal appearance, PERRL Pupil Exam: NORMAL ACCOMODATION - ENT Exam ENT Exam: Mucous Membranes Moist, Normal Exam - Neck Exam Neck Exam: Normal Inspection - Respiratory Exam Respiratory Exam: Clear to Ausculation Bilateral, NORMAL BREATHING PATTERN - Cardiovascular Exam Cardiovascular Exam: REGULAR RHYTHM - GI/Abdominal Exam GI & Abdominal Exam: Soft, Normal Bowel Sounds - Rectal Exam Rectal Exam: NORMAL INSPECTION - Exam External exam: NORMAL EXTERNAL EXAM - Extremities Exam Extremities Exam: Full ROM, Normal Capillary Refill, Normal Inspection - Back Exam Back Exam: NORMAL INSPECTION - Neurological Exam Neurological Exam: Alert, Awake Neuro motor strength exam: Left Upper Extremity: 3, Left Lower Extremity: 3 - Psychiatric Exam Psychiatric exam: Normal Affect, Normal Mood - Skin Skin Exam: Dry, Normal Color Assessment and Plan (1) Basal ganglia hemorrhage Assessment & Plan: plan for physical, occupational therapy rec and speech therapy program [facility]ita for discharge on 13 Status: Acute
--- NOTE | 2018-04-10 13:59 | CP.PCM.PN ---
Subjective - Date & Time of Evaluation Date of Evaluation: 04/10/18 Time of Evaluation: 09:30 - Subjective Subjective: no acute complaints at present Objective - Vital Signs/Intake and Output Vital Signs (last 24 hours): Temp Pulse Resp BP Pulse Ox 97.7 F 94 H 20 135/81 97 04/10/18 07:42 04/10/18 08:51 04/10/18 07:42 04/10/18 08:51 04/10/18 07:42 - Medications Medications: Current Medications Amlodipine Besylate (Norvasc) 5 mg PO DAILY [facility] Last Admin: 04/10/18 08:51 Dose: 5 mg Atorvastatin Calcium (Lipitor) 40 mg PO HS [facility] Last Admin: 04/09/18 21:18 Dose: 40 mg Diphenhydramine HCl (Benadryl) 25 mg PO Q6 PRN PRN Reason: Itching / Pruritus Duloxetine HCl (Cymbalta) 60 mg PO DAILY [facility] Last Admin: 04/10/18 08:50 Dose: 60 mg Guaifenesin (Robitussin) 200 mg PO Q6 PRN PRN Reason: Cough and congestion Last Admin: 04/07/18 21:08 Dose: 200 mg Lactic Acid (Lac-Hydrin 12% Lotion (225 G)) 1 applic TOP BID PRN PRN Reason: Itching / Pruritus Lidocaine (Lidoderm) 2 ea TD DAILY [facility] Last Admin: 04/10/18 08:50 Dose: 2 ea Metoprolol Tartrate (Lopressor) 50 mg PO Q12 [facility] Last Admin: 04/10/18 08:50 Dose: 50 mg Pantoprazole Sodium (Protonix Ec Tab) 40 mg PO DAILY [facility] Last Admin: 04/10/18 08:56 Dose: 40 mg Temazepam (Restoril) 15 mg PO HS PRN PRN Reason: Insomnia Last Admin: 03/27/18 21:23 Dose: 15 mg Tramadol HCl (Ultram) 100 mg PO Q6 PRN PRN Reason: Pain scale 4-10 Last Admin: 04/10/18 04:49 Dose: 100 mg - Labs Labs: 04/02/18 18:25 04/02/18 18:25 - Head Exam Head Exam: ATRAUMATIC, NORMAL INSPECTION, NORMOCEPHALIC - Eye Exam Eye Exam: EOMI, Normal appearance, PERRL Pupil Exam: NORMAL ACCOMODATION - ENT Exam ENT Exam: Mucous Membranes Moist, Normal Exam - Neck Exam Neck Exam: Normal Inspection - Respiratory Exam Respiratory Exam: Clear to Ausculation Bilateral, NORMAL BREATHING PATTERN - Cardiovascular Exam Cardiovascular Exam: REGULAR RHYTHM - GI/Abdominal Exam GI & Abdominal Exam: Soft, Normal Bowel Sounds - Rectal Exam Rectal Exam: NORMAL INSPECTION - Exam External exam: NORMAL EXTERNAL EXAM - Extremities Exam Extremities Exam: Full ROM, Normal Capillary Refill, Normal Inspection - Back Exam Back Exam: NORMAL INSPECTION - Neurological Exam Neurological Exam: Alert, Awake Neuro motor strength exam: Left Upper Extremity: 3, Right Upper Extremity: 3, Left Lower Extremity: 3, Right Lower Extremity: 3 - Psychiatric Exam Psychiatric exam: Normal Affect, Normal Mood - Skin Skin Exam: Dry, Intact Assessment and Plan (1) Basal ganglia hemorrhage Assessment & Plan: plan for today [facility] pt , ot additional [id number] after Dc Status: Acute
== END 2018-04-10 15:20 | disposition home or self-care (01) | DRG 12 ==
PROC: F07M6FZ Therapeutic Exercise Treatment of Musculoskeletal System - Whole Body using Assistive, Adaptive, Supportive or Protective Equipment (ICD-10-PCS; principal; 2018-03-22)
PROC: F08Z4FZ Home Management Treatment using Assistive, Adaptive, Supportive or Protective Equipment (ICD-10-PCS; 2018-03-22)
PROC: F07Z9FZ Gait Training/Functional Ambulation Treatment using Assistive, Adaptive, Supportive or Protective Equipment (ICD-10-PCS; 2018-03-22)
PROC: F06Z6ZZ Communicative/Cognitive Integration Skills Treatment (ICD-10-PCS; 2018-03-22)
DX: I69.192 Facial weakness following nontraumatic intracerebral hemorrhage (principal); I69.154 Hemiplegia and hemiparesis following nontraumatic intracerebral hemorrhage affecting left non-dominant side; I69.128 Other speech and language deficits following nontraumatic intracerebral hemorrhage; M10.9 Gout, unspecified; M17.0 Bilateral primary osteoarthritis of knee; Z68.34 Body mass index [BMI] 34.0-34.9, adult; Z79.899 Other long term (current) drug therapy; G47.9 Sleep disorder, unspecified; M79.604 Pain in right leg; M79.605 Pain in left leg; R47.81 Slurred speech; E66.9 Obesity, unspecified; E78.00 Pure hypercholesterolemia, unspecified; F32.9 Major depressive disorder, single episode, unspecified; F43.20 Adjustment disorder, unspecified; I10 Essential (primary) hypertension